=== PATIENT | female | born 1950 | race Caucasian/White ===

== ENCOUNTER 2017-03-13 15:36 | Emergency (ER) | payer MEDICARE ==
[2017-03-13 15:49] VITALS: BP 153/77
--- NOTE | 2017-03-13 16:16 | UC ---
Throat Pain/Nasal Julio HPI - HPI Summary HPI Summary: SEVERAL WEEKS OF ALLERGIES, AND CONGESTION; LAST FOUR DAYS HAS HAD SINUS PRESSURE, FACIAL PAIN. NO FEVER. NO SORE THROAT. NO HEADACHE. - History of Current Complaint Chief Complaint: UCGeneralIllness Stated Complaint: SINUS Time Seen by Provider: 03/13/17 15:46 Hx Obtained From: Patient Hx Last Menstrual Period: n/a Onset/Duration: Gradual Onset, Lasting Weeks, Worse Since - 4 DAYS Cough: None Associated Signs & Symptoms: Positive: Hoarseness, Sinus Discomfort, Nasal Discharge - Epiglottits Risk Factors Epiglottis Risk Factors: Negative - Allergies/Home Medications Allergies/Adverse Reactions: Allergies Allergy/AdvReac Type Severity Reaction Status Date / Time Ofloxacin [From Floxin] Allergy Mild See Comment Verified 03/13/17 15:51 Codeine Allergy Nausea And Verified 03/13/17 15:51 Vomiting Midazolam [From Versed] AdvReac Unknown sister had Verified 03/13/17 15:51 respiratory problem Propofol AdvReac Unknown sister had Verified 03/13/17 15:51 respiratory pain meds Allergy Intermediate Nausea Uncoded 03/13/17 15:51 Home Medications: Home Medications Cetirizine* [ZyrTEC 10 MG TAB*] 10 mg PO DAILY 03/13/17 [History Confirmed 03/13] [id number]-[id number] [[place] Plus Day/Nig] 1 tab PO ONCE [History Confirmed 03/13/17] PMH/Surg Hx/FS Hx/Imm Hx Previously Healthy: Yes - Surgical History Surgical History: Yes Surgery Procedure, Year, and Place: 2007 - right lower lung removed - had a mass ; benign. hysterectomy - Family History Known Family History: Positive: Respiratory Disease - ASTHMA, Other - cancer, father - Social History Occupation: Employed Full-time Lives: With Family Alcohol Use: Rare Substance Use Type: None Smoking Status (MU): Never Smoked Tobacco Review of Systems Constitutional: Negative Skin: Negative Eyes: Negative ENT: Nasal Discharge, Sinus Congestion, Sinus Pain/Tenderness Respiratory: Negative Cardiovascular: Negative Gastrointestinal: Negative Genitourinary: Negative Motor: Negative Neurovascular: Negative Musculoskeletal: Negative Neurological: Negative Psychological: Negative All Other Systems Reviewed And Are Negative: Yes Physical Exam Triage Information Reviewed: Yes Appearance: No Pain Distress, Well-Nourished, Ill-Appearing - MILDLY Vital Signs: Initial Vital Signs Temp 98.2 F 03/13/17 15:45 Pulse 74 03/13/17 15:45 Resp 17 03/13/17 15:45 BP 153/77 03/13/17 15:45 Pulse Ox 99 03/13/17 15:45 Vital Signs Reviewed: Yes Eye Exam: Normal ENT: Positive: Nasal congestion, TM bulging, TM dull Dental Exam: Normal Neck exam: Normal Neck: Positive: Supple, Nontender, No Lymphadenopathy Respiratory Exam: Normal Respiratory: Positive: Chest non-tender, Lungs clear, Normal breath sounds, No respiratory distress, No accessory muscle use Cardiovascular Exam: Normal Cardiovascular: Positive: RRR, No Murmur, Pulses Normal, Brisk Capillary Refill Abdominal Exam: Normal Abdomen Description: Positive: Nontender, No Organomegaly Musculoskeletal Exam: Normal Neurological Exam: Normal Psychological Exam: Normal Psychological: Positive: Normal Response To Family Skin Exam: Normal Throat Pain/Nasal Course/Dx - Differential Dx/Diagnosis Differential Diagnosis/HQI/PQRI: Pharyngitis, Sinusitis, Tonsillitis, URI Provider Diagnoses: SINUSITIS Discharge - Discharge Plan Condition: Stable Disposition: HOME Prescriptions: Amoxicillin/Clavulanate TAB* [Augmentin TAB 875*] 875 mg PO BID #20 tab Fluticasone NASAL SPRAY 50MCG* [Flonase NASAL SPRAY 50MCG*] 2 spray BOTH NARES DAILY #1 btl Patient Education Materials: Sinusitis (ED) Referrals: Thelma Bruce MD [Primary Care Provider] -
== END 2017-03-13 16:32 | disposition home or self-care (01) ==
LOC: UCCORT 15:36
DX: J32.9 Chronic sinusitis, unspecified (principal); Z90.710 Acquired absence of both cervix and uterus; Z88.1 Allergy status to other antibiotic agents; Z88.5 Allergy status to narcotic agent
CPT/HCPCS: 99212; G0463

== ENCOUNTER 2017-09-14 12:31 | Emergency (ER) | payer MEDICARE ==
[2017-09-14 13:04] VITALS: BP 148/87
[2017-09-14] MEDS ORDERED: Albuterol/Ipratropium NEB.SOL* Albuterol 2.5 MG/Ipratropium 0.5 MG 3 ML INH ONE (13:11)
--- NOTE | 2017-09-14 13:16 | UC ---
Respiratory Complaint HPI - HPI Summary HPI Summary: Patient has hx of lobectomy and has had symptoms of bronchitis for the past 2-3 months, has been treated once with ABX but no help. now has sinus pressures and increase cough. afebrile. - History of Current Complaint Chief Complaint: UCRespiratory Stated Complaint: SOB/COUGH/CONGESTION Time Seen by Provider: 09/14/17 13:05 Hx Obtained From: Patient Hx Last Menstrual Period: n/a ?: No Onset/Duration: Sudden Onset, Lasting Weeks - 10 Timing: Constant Severity Initially: Moderate Severity Currently: Moderate Pain Intensity: 0 Character: Cough: Productive Aggravating Factors: Exertion, Deep Breaths, Recumbent Position Alleviating Factors: Nothing Associated Signs And Symptoms: Positive: Dyspnea, Wheezing, URI, Nasal Congestion, Sinus Discomfort - Allergies/Home Medications Allergies/Adverse Reactions: Allergies Allergy/AdvReac Type Severity Reaction Status Date / Time Ofloxacin [From Floxin] Allergy Mild See Comment Verified 09/14/17 12:57 Codeine Allergy Nausea And Verified 09/14/17 12:57 Vomiting Midazolam [From Versed] AdvReac Unknown sister had Verified 09/14/17 12:57 respiratory problem Propofol AdvReac Unknown sister had Verified 09/14/17 12:57 respiratory pain meds Allergy Intermediate Nausea Uncoded 09/14/17 12:57 PMH/Surg Hx/FS Hx/Imm Hx Previously Healthy: Yes - Surgical History Surgical History: Yes Surgery Procedure, Year, and Place: 2007 - right lower lung removed - had a mass ; benign. hysterectomy - Family History Known Family History: Positive: Respiratory Disease - ASTHMA, Other - cancer, father - Social History Alcohol Use: Occasionally Substance Use Type: None Smoking Status (MU): Never Smoked Tobacco Review of Systems Constitutional: Fever, Fatigue Skin: Negative Eyes: Negative ENT: Sore Throat, Ear Ache, Nasal Discharge, Sinus Pain/Tenderness Respiratory: Shortness Of Breath, Cough Cardiovascular: Negative Gastrointestinal: Negative Genitourinary: Negative Motor: Negative Neurovascular: Negative Musculoskeletal: Negative Neurological: Headache Psychological: Negative Is Patient Immunocompromised?: No All Other Systems Reviewed And Are Negative: Yes Physical Exam Triage Information Reviewed: Yes Appearance: Well-Nourished, Ill-Appearing, Pain Distress Vital Signs: Initial Vital Signs Temp 98.2 F 09/14/17 12:59 Pulse 86 09/14/17 12:59 Resp 20 09/14/17 12:59 BP 148/87 09/14/17 12:59 Pulse Ox 98 09/14/17 12:59 Vital Signs Reviewed: Yes Eye Exam: Normal ENT: Positive: Nasal congestion, Nasal drainage, TM bulging, TM dull, TM red Dental Exam: Normal Neck exam: Normal Neck: Positive: Supple, Nontender, No Lymphadenopathy Respiratory: Positive: Chest non-tender, No respiratory distress, No accessory muscle use Cardiovascular Exam: Normal Cardiovascular: Positive: RRR, No Murmur, Pulses Normal Abdominal Exam: Normal Abdomen Description: Positive: Nontender, No Organomegaly, Soft Bowel Sounds: Positive: Present Musculoskeletal Exam: Normal Musculoskeletal: Positive: Strength Intact, ROM Intact, No Edema Neurological Exam: Normal Neurological: Positive: Alert, Muscle Tone Normal Psychological Exam: Normal Skin Exam: Normal UC Diagnostic Evaluation - Laboratory O2 Sat by Pulse Oximetry: 98 Re-Evaluation - Re-Evaluation First Eval Re-Evaluation Time: 12:45 Change: Improved - after neb Respiratory Course/Dx - Course Course Of Treatment: hx obtained, exam performed, meds reviewed, neb treatment given with improvment - Differential Dx/Diagnosis Differential Diagnosis/HQI/PQRI: Asthma, Bronchitis, CHF, Laryngitis, Lower Resp Infection, Sinusitis Provider Diagnoses: bronchitis. SOB Discharge - Discharge Plan Condition: Stable Disposition: HOME Patient Education Materials: Bronchospasm (ED) Referrals: Thelma Bruce MD [Primary Care Provider] - Additional Instructions: 1. take the medications as prescribed. 2. Increase fluid intake and get rest 3. COol mist humidification 4. Follow up with any increase in symptoms
== END 2017-09-14 14:07 | disposition home or self-care (01) ==
LOC: UCCORT 12:31
DX: J40 Bronchitis, not specified as acute or chronic (principal); R06.02 Shortness of breath; Z90.2 Acquired absence of lung [part of]; Z90.710 Acquired absence of both cervix and uterus; Z88.1 Allergy status to other antibiotic agents; Z88.5 Allergy status to narcotic agent; Z88.8 Allergy status to other drugs, medicaments and biological substances
CPT/HCPCS: 99212; A9270-GY; G0463

== ENCOUNTER 2018-10-02 10:03 | Emergency (ER) | payer MEDICARE ==
--- OUTSIDE RECORDS SUMMARY | 2018-10-02 10:22 | XMS REPORT | Continuity of Care Document ---
:1950 External Reference #:[id number] Author Name Cynthia Weire Care Team Providers Name Role Phone Thelma Bruce MD Primary Care Physician Unavailable Payers Date Identification Numbers Payment Provider Subscriber Policy Number: [id number] Medicare Blue Ppo Bhumika Ross Group Number: [id number] PayID: [id number] [address] [place] [address] Advance Directives Description No Information Available Problems Date Description Provider Status Onset: 05/20/2011 Hyperlipidemia Thelma Bruce M.D. Active Family History Date Family Member(s) Observation Comments Father Lung Cancer Mother due to Diabetes () Mother due to Emphysema () Social History Type Date Description Comments Sex Unknown Tobacco Use Start: Unknown Never Smoked Cigarettes ETOH Use Occasionally consumes alcohol Tobacco Use Start: Unknown Patient has never smoked Smoking Status Reviewed: 07/21/17 Patient has never smoked Allergies, Adverse Reactions, Alerts Date Description Reaction Status Severity Comments 09/22/2018 Propofol Active 09/22/2018 Midazolam Active 09/22/2018 Codiene Active Medications Medication Date Status Form Strength Qnty SIG Indications Ordering Provider Melatonin 06/23 Active Capsules 5mg 90caps 1 tab by G47.00 mouth Gaty, every M.D. night at bedtime Work Note 07/21 Active May return J01.90 to work Teo M.DFrances 07/24 Ventolin HFA 08/01 Active Aerosol 108(90Bas 1units 2 puff J18.9 e) four times Teo mcg/Act a day as M.D. needed Flonase Active Suspension 50mcg/Act one Unknown Allergy Relief /0000 inhalation each nostril every day Red Yeast Rice 06/23 Hx Capsules 600mg 120caps every day E78.5 Tony Bruce M.D. 09/22 Sulfamethoxazo 03/12 Hx Tablets 800-160mg 14tabs 1 by mouth N39.0 Thelma le/Trimethopri /2017 twice a jensen Bruce DS - day M.DFrances 06/23 Amoxicillin/Cl 08/01 Hx Tablets 500-125mg 20tabs 1 by mouth J18.8 Thelma avulanate twice a Teo Potassium - day M.DFrances 03/12 No Active 05/31 Hx Unknown Medications /2013 - 08/01 Vitamin D 11/29 Hx Capsules 1000Unit 100caps 1 po qd 268.9 Tony Bruce M.D. 05/31 No Active 05/20 Hx Unknown Medications /2010 - 11/29 Ranitidine HCL 08/02 Hx Tablets 150mg 30tabs 1 po qd 535.00 may take Tony Bruce bid for M.D. 10/30 next days Compazine 08/02 Hx 10mg 30units 1 po q 6 535.00 hours prn Tony Bruce nausea M.DFrances 10/30 Compazine 08/02 Hx 30units 1 pr q 6 Thelma Suppositories /2008 hours Tony Bruce M.D. 10/30 Work Note 08/02 Hx may return 535.00 to work Tony Bruce Sat Dec Gena 10/30 18, 2008 Enablex 07/06 Hx Tablets ER 7.5mg samples 625.6 24HR Tony Bruce M.D. 10/30 Work Note 12/14 Hx may return to work no Tony Bruceio Gena 05/08 ns 12/15/08 Fish Oil 12/12 Hx Capsules 1000mg 1 po q day 272.4 Tony Bruce M.D. 05/20 Amoxicillin 12/12 Hx Capsules 500mg 20caps 1 tablets 473.90 po bid Tony Bruce M.D. 05/08 Citalopram 04/26 Hx Tablets 10mg 30tabs 1 po qd 300.4 Thelma Hydrobromide Tony Bruce M.D. 05/08 Lunesta 04/26 Hx Tablets 3mg 30tabs 1 po qhs 300.4 Tony Bruce M.D. 05/08 Flexeril 03/28 Hx Tablets 5mg 30tabs 1 po tid 724.3 prn Tony Bruce M.D. 04/26 Work Note 03/28 Hx patient 724.3 will not Teo, - be allowed M.DFrances 12/12 to return to work until 03/31/08 D/t lifting responsibi lities Bactrim TMP/ 10/30 Hx Tablets 80mg;400 15tabs 1 PO bid 466.00 Thelma SMX mg Tony Bruce M.D. 04/26 Zetia 05/19 Hx Tablets 10mg 90tabs 1 PO qd Thelma Tony Bruce M.D. 08/01 Fish Oil 01/20 Hx Tablets 1000mg 2 po qd Thelma Tony Bruce M.D. 04/26 Potassium 01/20 Hx 1 PO qd Thelma Citrate Tony Bruce M.D. 05/04 Glusomine 01/20 Hx 1000mg 2 PO qd Thelma Sulsate Tony Bruce M.D. 04/26 Magnesium 01/20 Hx Thelma Tony Bruce M.D. 05/04 Premarin 01/17 Hx Tablets 0.45mg 90tabs 1 po qd Thelma Tony Bruce M.D. 05/19 Naproxen Hx Tablets 220mg 1 by mouth Unknown Sodium /0000 twice a - day as 03/12 needed /2018 Benzonatate Hx Capsules 100mg 60caps 1 by mouth Thelma /0000 every 8 Teo, - hours as M.DFrances 03/12 needed for /2017 cough Immunizations CPT Code Status Date Vaccine Lot # [id number] Given 08/31/2013 [place] [id number] Given 06/23/2006 Influenza Vaccine [id number] Vital Signs Date Vital Result Comment 09/22/2018 10:40am BP Systolic 130 mmHg BP Diastolic 68 mmHg Height 60 inches 5'0" Weight 167.00 lb BMI (Body Mass Index) 32.6 kg/m2 06/23/2018 1:28pm BP Systolic 134 mmHg BP Diastolic 68 mmHg Heart Rate 81 /min Height 60 inches 5'0" Weight 168.00 lb BMI (Body Mass Index) 32.8 kg/m2 O2 % BldC Oximetry 97 % 03/12/2018 11:53am BP Systolic 120 mmHg BP Diastolic 74 mmHg Heart Rate 94 /min Body Temperature 97.8 F Respiratory Rate 16 /min Height 60 inches 5'0" Weight 166.00 lb BMI (Body Mass Index) 32.4 kg/m2 O2 % BldC Oximetry 97 % 07/21/2017 3:15pm BP Systolic 136 mmHg BP Diastolic 80 mmHg Heart Rate 100 /min Body Temperature 98.3 F O2 % BldC Oximetry 98 % 06/18/2017 10:17am BP Systolic 138 mmHg BP Diastolic 78 mmHg Respiratory Rate 20 /min Height 60 inches 5'0" Weight 171.00 lb BMI (Body Mass Index) 33.4 kg/m2 03/28/2015 10:26am BP Systolic 110 mmHg BP Diastolic 62 mmHg Body Temperature 97.6 F 12/15/2014 9:50am BP Systolic 110 mmHg BP Diastolic 60 mmHg Height 60 inches 5'0" Weight 169.00 lb BMI (Body Mass Index) 33.0 kg/m2 08/01/2014 1:25pm BP Systolic 104 mmHg BP Diastolic 60 mmHg Body Temperature 97.8 F 05/31/2014 10:05am BP Systolic 120 mmHg BP Diastolic 70 mmHg Height 60 inches 5'0" Weight 164.00 lb BMI (Body Mass Index) 32.0 kg/m2 11/29/2013 11:20am BP Systolic 116 mmHg BP Diastolic 60 mmHg Height 60 inches 5'0" Weight 170.00 lb BMI (Body Mass Index) 33.2 kg/m2 08/31/2013 11:19am BP Systolic 112 mmHg BP Diastolic 70 mmHg Height 60 inches 5'0" Weight 170.00 lb BMI (Body Mass Index) 33.2 kg/m2 05/20/2011 10:35am BP Systolic 120 mmHg BP Diastolic 78 mmHg Height 62 inches 5'2" Weight 167.00 lb BMI (Body Mass Index) 30.5 kg/m2 10/30/2009 11:48am BP Systolic 120 mmHg BP Diastolic 60 mmHg Weight 160.00 lb 08/02/2009 1:37pm BP Systolic 110 mmHg BP Diastolic 66 mmHg Body Temperature 99.0 F Weight 160.00 lb 07/06/2009 11:49am BP Systolic 132 mmHg BP Diastolic 78 mmHg 05/08/2009 10:57am BP Systolic 122 mmHg BP Diastolic 70 mmHg Weight 164.00 lb 12/12/2008 11:44am BP Systolic 120 mmHg BP Diastolic 82 mmHg Height 59 inches 4'11" Weight 167.00 lb BMI (Body Mass Index) 33.7 kg/m2 07/21/2008 10:21am BP Systolic 120 mmHg BP Diastolic 70 mmHg Height 59 inches 4'11" Weight 164.00 lb BMI (Body Mass Index) 33.1 kg/m2 04/26/2008 10:00am BP Systolic 132 mmHg BP Diastolic 70 mmHg Height 59 inches 4'11" Weight 169.00 lb BMI (Body Mass Index) 34.1 kg/m2 03/28/2008 9:51am BP Systolic 122 mmHg BP Diastolic 80 mmHg Height 59 inches 4'11" 05/04/2007 11:10am BP Systolic 120 mmHg BP Diastolic 62 mmHg Height 59 inches 4'11" Weight 177.00 lb BMI (Body Mass Index) 35.7 kg/m2 10/30/2006 10:29am BP Systolic 128 mmHg BP Diastolic 74 mmHg Heart Rate 100 /min Body Temperature 96.8 F Height 59 inches 4'11" O2 % BldC Oximetry 98 % 06/23/2006 2:27pm BP Systolic 122 mmHg BP Diastolic 74 mmHg Height 59 inches 4'11" Weight 166.00 lb BMI (Body Mass Index) 33.5 kg/m2 05/19/2006 11:01am BP Systolic 122 mmHg BP Diastolic 74 mmHg Height 59 inches 4'11" Weight 160.00 lb BMI (Body Mass Index) 32.3 kg/m2 01/20/2006 2:35pm BP Systolic 126 mmHg BP Diastolic 74 mmHg Height 59 inches 4'11" Weight 156.00 lb BMI (Body Mass Index) 31.5 kg/m2 Results Test Date Facility Test Result H/L Range Note Lipid Panel 09/14/2018 [facility] Cholesterol 281 mg/dL High <199 [address] [place] [address] [phone] HDL Cholesterol 40 mg/dL Low >50 Cholesterol/HDL Ratio 7.0 CALC High <5.0 LDL Chol,Calculated 202 mg/dL High 0-100 2 Triglycerides 209 mg/dL High <150 Non-HDL Cholesterol 241 mg/dL High <130 3 CBC W/ Diff & PLT 06/12/2018 [facility] WBC 6.1 thous/L 3.8-10.[address] [place] [address] [phone] RBC 4.93 mill/L 3.80-5.10 Hemoglobin 14.0 g/dL 11.7-15.5 Hematocrit 41.5 % 35.0-45.0 MCV 84.3 FL 80.0-100.0 MCH 28.4 pg 27.0-33.0 MCHC 33.7 g/dL 32.0-36.0 RDW 14.1 % 11.0-15.0 Platelet Count 293 thous/L 140-400 MPV 8.9 FL 7.5-12.5 Neutrophils,Absolute 3350 cells/L 1954-6098 Bands,Absolute PENDING Metamyelocytes,Absolute PENDING Myelocytes,Absolute PENDING Promyelocytes,Absolute PENDING Lymphocytes,Absolute 1960 cells/L 850-3900 Monocytes,Absolute 360 cells/L 200-950 Eosinophils,Absolute 400 cells/L 15-500 Basophils,Absolute 40 cells/L 0-200 Blast Cells,Absolute PENDING Nucleated RBC,Absolute PENDING Total Neutrophils,% 55 % 40-75 Bands,% PENDING Metamyelocytes,% PENDING Myelocytes,% PENDING Promyelocytes,% PENDING Total Lymphocytes,% 32 % 12-47 Reactive Lymphocytes PENDING Monocytes,% 6 % 4-12 Eosinophils,% 7 % High 0-4 Basophils,% 1 % 0-1 4 Blasts,% PENDING Nucleated RBC PENDING Comment PENDING Basic Metab W/O CA 06/12/2018 [facility] Sodium 138 mmol/L 135-[address] [place] [address] [phone] Potassium 4.3 mmol/L 3.5-5.3 Chloride 104 mmol/L 98-110 Carbon Dioxide 26 mmol/L 20-32 5 Glucose 96 mg/dL 65-99 6 Urea Nitrogen (BUN) 21 mg/dL 7-25 Creatinine 0.70 mg/dL 0.50-0.99 7 BUN/Creatinine Ratio 30.0 High 6-22 Lipid Panel 06/12/2018 [facility] Cholesterol 294 mg/dL High <[address] [place] [address] [phone] HDL Cholesterol 43 mg/dL Low >50 Cholesterol/HDL Ratio 6.8 CALC High <5.0 LDL Chol,Calculated 198 mg/dL High 0-100 8 Triglycerides 313 mg/dL High <150 Non-HDL Cholesterol 251 mg/dL High <130 9 Laboratory test 03/29/2016 [facility] Urine Culture SEE RESULT 10, [address] [place] [address] [phone] CBC W/ Diff & 12/08/2014 [facility] WBC 6.2 3.8-1 [address] thous/L 0.8 [place] [address] [phone] RBC 4.90 mill/L 3.80-5.10 Hemoglobin 13.9 g/dL 11.7-15.5 Hematocrit 41.9 % 35.0-45.0 MCV 85.6 FL 80.0-100.0 MCH 28.5 pg 27.0-33.0 MCHC 33.2 g/dL 32.0-36.0 RDW 14.1 % 11.0-15.0 Platelet Count 276 thous/L 140-400 Platelet Sufficiency PENDING Neutrophils,Absolute 3680 cells/L 8237-7017 Bands,Absolute PENDING Metamyelocytes,Absolute PENDING Myelocytes,Absolute PENDING Promyelocytes,Absolute PENDING Lymphocytes,Absolute 1810 cells/L 850-3900 Monocytes,Absolute 440 cells/L 200-950 Eosinophils,Absolute 240 cells/L 15-500 Basophils,Absolute 40 cells/L 0-200 Blast Cells,Absolute PENDING Nucleated RBC,Absolute PENDING Total Neutrophils,% 59 % Not Established Bands,% PENDING Metamyelocytes,% PENDING Myelocytes,% PENDING Promyelocytes,% PENDING Total Lymphocytes,% 29 % Not Established Monocytes,% 7 % Not Established Eosinophils,% 4 % Not Established Basophils,% 1 % Not Established Blasts,% PENDING Nucleated RBC PENDING RBC Morphology PENDING Anisocytosis PENDING Poikilocytosis PENDING Microcytosis PENDING Macrocytosis PENDING Polychromasia PENDING Hypochromasia PENDING Target Cells PENDING Basophilic Stippling PENDING Comment PENDING BMP W/O Egfr 12/08/2014 [facility] Sodium 139 mmol/L 135-[address] [place] [address] [phone] Potassium 4.2 mmol/L 3.5-5.3 Chloride 103 mmol/L 98-110 Carbon Dioxide 27 mmol/L 19-30 Calcium 9.0 mg/dL 8.6-10.4 Glucose 86 mg/dL 65-99 13 Urea Nitrogen 22 mg/dL 7-25 Creatinine 0.75 mg/dL 0.50-0.99 14 BUN/Creatinine Ratio 29.9 High 6-22 Lipid Panel 12/08/2014 [facility] Cholesterol 281 mg/dL High 125-[address] [place], [place] [address] [phone] HDL Cholesterol 42 mg/dL Low > Or=46 Cholesterol/HDL Ratio 6.7 High < Or=5.0 LDL Chol,Calculated 194 mg/dL High <130 15 Triglycerides 227 mg/dL High <150 Non-HDL Cholesterol 239 mg/dL High 16 TSH & T4,Free 12/08/2014 [facility] TSH 1.96 mIU/L 0.40-4.[address] [place], [place] [address] [phone] T4,Free 1.3 ng/dL 0.8-1.8 [facility] 12/08/2014 [facility] Vitamin 21 ng/mL Low 30-100 25-Hydroxy D [address] D,25-Oh,Total (D2,D3) LC/MS [place], [place] [id number] [phone] Vitamin D,25-Oh,D3 21 ng/mL Vitamin D,25-Oh,D2 <4 ng/mL 18 Laboratory test 05/24/2014 [facility] Direct LDL 203 mg/dL High <130 [address] [place] [address] [phone] CBC W/ Diff & 11/22/2013 [facility] WBC 7.2 3.8-10.[address] thous/L [place], [place] [id number] [phone] RBC 4.89 mill/L 3.80-5.10 Hemoglobin 14.2 g/dL 11.7-15.5 Hematocrit 41.0 % 35.0-45.0 MCV 83.9 FL 80.0-100.0 MCH 29.1 pg 27.0-33.0 MCHC 34.6 g/dL 32.0-36.0 RDW 13.5 % 11.0-15.0 Platelet Count 271 thous/L 140-400 Neutrophils,Absolute 4410 cells/L 4767-5134 Lymphocytes,Absolute 2140 cells/L 850-3900 Monocytes,Absolute 400 cells/L 200-950 Eosinophils,Absolute 180 cells/L 15-500 Basophils,Absolute 60 cells/L 0-200 Total Neutrophils,% 61 % Not Established Total Lymphocytes,% 30 % Not Established Monocytes,% 6 % Not Established Eosinophils,% 3 % Not Established Basophils,% 1 % Not Established BMP W/O Egfr 11/22/2013 [facility] Sodium 141 mmol/L 135-[address] [place], [place] [address] [phone] Potassium 4.3 mmol/L 3.5-5.3 Chloride 104 mmol/L 98-110 Carbon Dioxide 26 mmol/L 19-30 Calcium 9.5 mg/dL 8.6-10.4 Glucose 87 mg/dL 65-99 20 Urea Nitrogen 21 mg/dL 7-25 Creatinine 0.72 mg/dL 0.50-0.99 21 BUN/Creatinine Ratio 28.5 High 6-22 Lipid Panel 11/22/2013 [facility] Cholesterol 313 mg/dL High 125-[address] [place] [address] [phone] HDL Cholesterol 45 mg/dL Low > Or=46 Cholesterol/HDL Ratio 7.0 High < Or=5.0 LDL Chol,Calculated 218 mg/dL High <130 22 Triglycerides 249 mg/dL High <150 Non-HDL Cholesterol 268 mg/dL High 23 TSH & T4,Free 11/22/2013 [facility] TSH 2.98 mIU/L 0.40-4.[address] [place] [address] [phone] T4,Free 1.2 ng/dL 0.8-1.8 [facility] 11/22/2013 [facility] Vitamin 18 ng/mL Low 30-100 25-Hydroxy D [address] D,25-Oh,Total (D2,D3) LC/[place] [address] [phone] Vitamin D,25-Oh,D3 18 ng/mL Vitamin D,25-Oh,D2 <4 ng/mL 25 Urine Culture & 06/29/2010 [employer] Urine Culture SN1 [address] [place] [address] [phone] TSH & T4,Free 10/23/2009 [facility] TSH,3RD 2.05 0.40-[address] Generation mIU/L .50 [place] [address] [phone] T4,Free 1.1 ng/dL 0.8-1.8 CBC W/ Diff & PLT 10/23/2009 [facility] WBC 5.2 thous/L 3.8-10.[address] [place] [address] [phone] RBC 4.51 mill/L 3.80-5.10 Hemoglobin 13.1 g/dL 11.7-15.5 Hematocrit 38.9 % 35.0-45.0 MCV 86.2 FL 80.0-100.0 MCH 28.9 pg 27.0-33.0 MCHC 33.6 g/dL 32.0-36.0 RDW 13.5 % 11.0-15.0 Platelet Count 254 thous/L 140-400 Platelet Sufficiency NORMAL Normal Neutrophils,Absolute 3010 cells/L 9361-8511 Bands,Absolute DNR cells/L 0-750 Metamyelocytes,Absolute DNR cells/L 0 Myelocytes,Absolute DNR cells/L 0 Promyelocytes,Absolute DNR cells/L 0 Lymphocytes,Absolute 1750 cells/L 850-3900 Monocytes,Absolute 300 cells/L 200-950 Eosinophils,Absolute 120 cells/L 15-500 Basophils,Absolute 30 cells/L 0-200 Blast Cells,Absolute DNR cells/L 0 Nucleated RBC,Absolute DNR cells/L 0 Total Neutrophils,% 57 % 38-80 Bands,% DNR % 0-10 Metamyelocytes,% DNR % Myelocytes,% DNR % Promyelocytes,% DNR % Total Lymphocytes,% 34 % 15-49 Monocytes,% 6 % 0-13 Eosinophils,% 2 % 0-8 Basophils,% 1 % 0-2 Blasts,% DNR % Nucleated RBC DNR /100WBC 0 RBC Morphology NORMAL Anisocytosis DNR Poikilocytosis DNR Microcytosis DNR Macrocytosis DNR Polychromasia DNR Hypochromasia DNR Target Cells DNR Basophilic Stippling DNR Comment DNR Lipid Panel 10/23/2009 [facility] Cholesterol 289 mg/dL High 125-[address] [place] [address] [phone] HDL Cholesterol 44 mg/dL Low > Or=46 Triglycerides 217 mg/dL High <150 Cholesterol/HDL Ratio 6.6 High < Or=5.0 LDL Chol,Calculated 202 mg/dL High <130 28 Basic Metabolic Panel 10/23/2009 [facility] Sodium 140 mmol/L 135-[address] [place] [address] [phone] Potassium 4.3 mmol/L 3.5-5.3 Chloride 106 mmol/L 98-110 Carbon Dioxide 26 mmol/L 21-33 Calcium 9.2 mg/dL 8.6-10.2 Glucose 99 mg/dL 65-99 29 Urea Nitrogen 18 mg/dL 7-25 Creatinine 0.76 mg/dL 0.60-1.18 BUN/Creatinine Ratio 23.9 High 6-22 Egfr Non-Afr. Bangladeshi >60 ML/MIN/1.73M2 > Or=60 Egfr >60 ML/MIN/1.73M2 > Or=60 Lipid Panel 05/02/2009 [facility] Cholesterol 267 mg/dL High 125-[address] [place] [address] [phone] HDL Cholesterol 47 mg/dL > Or=46 Triglycerides 205 mg/dL High <150 Cholesterol/HDL Ratio 5.7 High < Or=5.0 LDL Chol,Calculated 179 mg/dL High <130 30 TSH & T4,Free 11/22/2008 [facility] TSH,3RD 2.60 mU/L 0.40-4.[address] [place] [address] [phone] T4,Free 1.3 ng/dL 0.8-1.8 CBC W/ Diff & PLT 11/22/2008 [facility] WBC 5.2 thous/L 3.8-10.8 [address] [place] [address] [phone] RBC 4.86 mill/L 3.80-5.10 Hemoglobin 14.2 g/dL 11.7-15.5 Hematocrit 40.9 % 35.0-45.0 MCV 84.1 FL 80.0-100.0 MCH 29.2 pg 27.0-33.0 MCHC 34.7 g/dL 32.0-36.0 RDW 13.9 % 11.0-15.0 Platelet Count 272 thous/L 140-400 Platelet Sufficiency NORMAL Normal Neutrophils,Absolute 2860 cells/L 7175-3865 Bands,Absolute DNR cells/L 0-750 Metamyelocytes,Absolute DNR cells/L 0 Myelocytes,Absolute DNR cells/L 0 Promyelocytes,Absolute DNR cells/L 0 Lymphocytes,Absolute 1730 cells/L 850-3900 Monocytes,Absolute 420 cells/L 200-950 Eosinophils,Absolute 140 cells/L 15-500 Basophils,Absolute 50 cells/L 0-200 Blast Cells,Absolute DNR cells/L 0 Nucleated RBC,Absolute DNR cells/L 0 Total Neutrophils,% 55 % 38-80 Bands,% DNR % 0-10 Metamyelocytes,% DNR % Myelocytes,% DNR % Promyelocytes,% DNR % Total Lymphocytes,% 33 % 15-49 Monocytes,% 8 % 0-13 Eosinophils,% 3 % 0-8 Basophils,% 1 % 0-2 Blasts,% DNR % Nucleated RBC DNR /100WBC 0 RBC Morphology NORMAL Anisocytosis DNR Poikilocytosis DNR Microcytosis DNR Macrocytosis DNR Polychromasia DNR Hypochromasia DNR Target Cells DNR Basophilic Stippling DNR Comment DNR Lipid Panel 11/22/2008 [facility] Cholesterol 314 mg/dL High 125-200 [address] [place] [address] [phone] HDL Cholesterol 43 mg/dL Low > Or=46 Triglycerides 355 mg/dL High <150 Cholesterol/HDL Ratio 7.3 High < Or=5.0 LDL Chol,Calculated 200 mg/dL High <130 32 Basic Metabolic Panel 11/22/2008 [facility] Sodium 139 mmol/L 135-[address] [place] [address] [phone] Potassium 4.4 mmol/L 3.5-5.3 Chloride 103 mmol/L 98-110 Carbon Dioxide 29 mmol/L 21-33 Calcium 9.0 mg/dL 8.6-10.2 Glucose 90 mg/dL 65-99 33 Urea Nitrogen 16 mg/dL 7-25 Creatinine 0.76 mg/dL 0.60-1.18 BUN/Creatinine Ratio 20.9 6-22 Egfr Non-Afr. Bangladeshi >60 ML/MIN/1.73M2 > Or=60 Egfr >60 ML/MIN/1.73M2 > Or=60 Laboratory test finding 03/25/2008 [facility] BUN 19 mg/dL 5-[address] [place] [address] [phone] Creatinine 0.8 mg/dL 0.5-1.4 Lipid Panel 06/16/2006 [facility] Cholesterol 295 mg/dL High <200 [address] [place] [address] [phone] HDL Cholesterol 54 mg/dL >40 36 Cholesterol/HDL Ratio 5.5 High <4.4 LDL Chol,Calculated 203 mg/dL High <130 37 Triglycerides 190 mg/dL High <150 Lipid Panel 05/12/2006 [facility] Cholesterol 292 mg/dL High <[address] [place] [address] [phone] HDL Cholesterol 46 mg/dL >40 38 Triglycerides 232 mg/dL High <150 Cholesterol/HDL Ratio 6.3 High <4.4 LDL Chol,Calculated 200 mg/dL High <130 39 CBC W/ Diff & PLT 05/12/2006 [facility] WBC 5.4 thous/L 3.8-10.[address] [place] [address] [phone] RBC 4.75 mill/L 3.80-5.10 Hemoglobin 14.0 g/dL 11.7-15.5 Hematocrit 40.3 % 35.0-45.0 MCV 84.8 FL 80.0-100.0 MCH 29.4 pg 27.0-33.0 MCHC 34.7 g/dL 32.0-36.0 RDW 13.6 % 11.0-15.0 Platelet Count 279 thous/L 140-400 Platelet Sufficiency NORMAL Normal Neutrophils,Absolute 2600 cells/L 6880-5313 Bands,Absolute DNR cells/L 0-750 Metamyelocytes,Absolute DNR cells/L 0 Myelocytes,Absolute DNR cells/L 0 Promyelocytes,Absolute DNR cells/L 0 Lymphocytes,Absolute 2250 cells/L 850-3900 Monocytes,Absolute 350 cells/L 200-950 Eosinophils,Absolute 120 cells/L 15-500 Basophils,Absolute 40 cells/L 0-200 Blast Cells,Absolute DNR cells/L 0 Nucleated RBC,Absolute DNR cells/L 0 Total Neutrophils,% 48 % 38-80 Bands,% DNR % 0-10 Metamyelocytes,% DNR % Myelocytes,% DNR % Promyelocytes,% DNR % Total Lymphocytes,% 42 % 15-49 Monocytes,% 7 % 0-13 Eosinophils,% 2 % 0-8 Basophils,% 1 % 0-2 Blasts,% DNR % Nucleated RBC DNR /100WBC 0 RBC Morphology NORMAL Anisocytosis DNR Poikilocytosis DNR Microcytosis DNR Macrocytosis DNR Polychromasia DNR Hypochromasia DNR Target Cells DNR Basophilic Stippling DNR Comment DNR TSH & T4,Free 05/12/2006 [facility] TSH 1.63 mU/L 0.40-5.[address] [place] [address] [phone] T4,Free 1.3 ng/dL 0.8-1.8 Laboratory test 05/12/2006 [facility] Glucose 97 mg/dL 65-99 [address] [place] [address] [phone] Laboratory test 02/19/2006 [facility] Urine Culture SPECIMEN [address] [employer] CONTAIN <[place] [address] NOTE> [phone] 1 FASTING 2 LDL-C levels > or equal to 190 mg/dL may indicate familial hypercholesterolemia (FH). Clinical assessment and measurement of blood lipid levels should be considered for all first degree relatives of patients with an FH diagnosis. For questions about testing for familial hypercholesterolemia, please call [facility] at [email or web address]. gus Walter al.J National Lipid Association Recommendations for Patient-Centered Management of Dyslipidemia:Part 1 Journal of Clinical Lipidology 2015;9(2),129-169. 3 Non-HDL level > tm=152 is very high and may indicate genetic familial hypercholesterolemia (FH). Clinical assessment and measurement of blood lipid levels should be considered for all first-degree relatives of patients with an FH diagnosis. 4 Relative blood cell counts (%) should be compared with absolute cell counts (cells/mcL). Relative counts may not be clinically meaningful if the absolute count of one or more cell type is decreased. Reference ranges for relative cell counts derived from: A Manual of Laboratory and Diagnostics Tests, 9th Ed, Sylwia Chris & Desai, 2015. Pediatric Reference Intervals, 7th Ed, [employer], 2011. 5 Reference range for high altitude clients: 18-30 mmol/L 6 GLUCOSE REFERENCE RANGE BASED ON FASTING SPECIMEN. 7 The upper reference limit for Creatinine is approximately 13% higher for people identified as -Bangladeshi. 8 LDL-C levels > or equal to 190 mg/dL may indicate familial hypercholesterolemia (FH). Clinical assessment and measurement of blood lipid levels should be considered for all first degree relatives of patients with an FH diagnosis. gus Walter al.J National Lipid Association Recommendations for Patient-Centered Management of Dyslipidemia:Part 1 Journal of Clinical Lipidology 2015;9(2) ,129-169. 9 Non-HDL level > ls=534 is very high and may indicate genetic familial hypercholesterolemia (FH). Clinical assessment and measurement of blood lipid levels should be considered for all first-degree relatives of patients with an FH diagnosis. 10 [id number] 11 SEE RESULT BELOW Name: BHUMIKA ROSS : [address]: Estefania Balderrama MD Acct: [id number] Unit: [id number] AGE: 65 Location: [facility] Re03/29/16 SEX: F Status: DEP ER SPEC: [id number] DAVID: 03/29/16 [facility] [address]: Estefania Balderrama MD REQ: [id number] RECD: 03/29/16 STATUS: COMP OTHR DR: Thelma Bruce MD _ SOURCE: URINE SPDESC: ORDERED: Urine Culture COMMENTS: [id number] Procedure Result Reported Site Urine Culture Final 03/30/16- 1311 ML No Growth (<1,000 CFU/mL) * ML - MAIN LAB (PSC1) . END OF REPORT * ML=Testing performed at Main Lab DEPARTMENT OF PATHOLOGY, [address] [place] [address] Milton Hopper M.D. Director [facility] # [id number] 12 FASTING 13 GLUCOSE REFERENCE RANGE BASED ON FASTING SPECIMEN. 14 The upper reference limit for Creatinine is approximately 13% higher for people identified as -Bangladeshi. 15 LDL-C levels > zi=491 mg/dL may include familial hypercholesterolemia (FH). Clinical assessment and measurement of blood lipid levels should be considered for all first degree relatives of patients with an FH diagnosis. J of Clinincal Lipidology 5:S1-S8 2010. LDL-CHOLESTEROL RISK CATEGORY* GOAL VERY HIGH (E.G. DIABETES + CVD) <70 MG/DL HIGH (DIABETICS; CHD RISK EQUIVALENTS) <100 MG/DL MODERATELY HIGH (MULTIPLE(2+) RISK FACTORS) <130 MG/DL 0 TO 1 RISK FACTORS <160 MG/DL * NCEP REPORT. CIRCULATION 2004; 110: 227-239 16 Target for non-HDL cholesterol is 30 mg/dL higher than LDL cholesterol target. 17 REFERENCE RANGES BELOW ARE APPLICABLE TO FEMALES FIRST TRIMESTER - 0.26 - 2.66 mIU/L SECOND TRIMESTER - 0.55 - 2.73 mIU/L THIRD TRIMESTER - 0.43 - 2.91 mIU/L 18 25-OHD3 indicates both endogenous production and supplementation. 25-OHD2 is an indicator of exogenous sources such as diet or supplementation. Therapy is based on measurement of Total 25-OHD, with levels <20 ng/mL indicative of Vitamin D deficiency while levels between 20 ng/mL and 30 ng/mL suggest insufficiency. Optimal levels are > or=30 ng/mL. For more information on this test, go to http://education.[employer]/faq/25-OHVitaminD Effective December 19, the test order code 88387, used prior to December 19, for LC/MS/MS, will be transitioned to a carefully-selected immunoassay methodology. The new immunoassay has passed CDC standardization certifica- tion and provides high quality quantitative results that are tied back to standards from the [employer] [place] [employer]. For those patients for whom LC/MS/MS testing is appropriate, please utilize test code 84703. When LC/MS/MS is the chosen assay, utilize test code 30439 for patients >or=3 years of age, patients who are on D2 supplementation, and patients for whom a separate D2 and D3 measurement is required. For patients <3 years of age, test code 07787 should be used. Important Note Regarding Custom Panels With 25-Hydroxyvitamin D: If you currently order vitamin D testing as part of a custom panel, the LC/MS/MS vitamin D test will be maintained in your panel after December 19, 2014. If you would like to replace the test in your panel with the new immunoassay, or have any questions regarding the transition of the 80781 test code, please contact your local [employer] export sales manager. 19 LDL-CHOLESTEROL RISK CATEGORY* GOAL VERY HIGH (E.G. DIABETES + CVD) <70 MG/DL HIGH (DIABETICS; CHD RISK EQUIVALENTS) <100 MG/DL MODERATELY HIGH (MULTIPLE(2+) RISK FACTORS) <130 MG/DL 0 TO 1 RISK FACTORS <160 MG/DL * NCEP REPORT. CIRCULATION 2004; 110: [phone] 20 GLUCOSE REFERENCE RANGE BASED ON FASTING SPECIMEN. 21 The upper reference limit for Creatinine is approximately 13% higher for people identified as -[place]. 22 LDL-CHOLESTEROL RISK CATEGORY* GOAL VERY HIGH (E.G. DIABETES + CVD) <70 MG/DL HIGH (DIABETICS; CHD RISK EQUIVALENTS) <100 MG/DL MODERATELY HIGH (MULTIPLE(2+) RISK FACTORS) <130 MG/DL 0 TO 1 RISK FACTORS <160 MG/DL * NCEP REPORT. CIRCULATION 2004; 110: [phone] 23 Target for non-HDL cholesterol is 30 mg/dL higher than LDL cholesterol target. 24 REFERENCE RANGES BELOW ARE APPLICABLE TO FEMALES FIRST TRIMESTER - 0.26 - 2.66 mIU/L SECOND TRIMESTER - 0.55 - 2.73 mIU/L THIRD TRIMESTER - 0.43 - 2.91 mIU/L 25 25-OHD3 indicates both endogenous production and supplementation. 25-OHD2 is an indicator of exogenous sources such as diet or supplementation. Therapy is based on measurement of Total 25-OHD, with levels <20 ng/mL indicative of Vitamin D deficiency while levels between 20 ng/mL and 30 ng/mL suggest insufficiency. Optimal levels are > or=30ng/mL. For more information on this test, go to http://education.[employer].EVIIVO/faq/25-OHVitaminD 26 SCANT NORMAL URETHRAL OR PERINEAL DAVE 27 TSH REFERENCE RANGE: FIRST TRIMESTER - 0.20 - 4.70 mIU/L SECOND TRIMESTER - 0.30 - 4.10 mIU/L THIRD TRIMESTER - 0.40 - 2.70 mIU/L 28 LDL-CHOLESTEROL RISK CATEGORY* GOAL VERY HIGH (E.G. DIABETES + CVD) <70 MG/DL HIGH (DIABETICS; CHD RISK EQUIVALENTS) <100 MG/DL MODERATELY HIGH (MULTIPLE(2+) RISK FACTORS) <130 MG/DL 0 TO 1 RISK FACTORS <160 MG/DL * NCEP REPORT. CIRCULATION 2004; 110: [phone] 29 GLUCOSE REFERENCE RANGE BASED ON FASTING SPECIMEN. 30 LDL-CHOLESTEROL RISK CATEGORY* GOAL VERY HIGH (E.G. DIABETES + CVD) <70 MG/DL HIGH (DIABETICS; CHD RISK EQUIVALENTS) <100 MG/DL MODERATELY HIGH (MULTIPLE(2+) RISK FACTORS) <130 MG/DL 0 TO 1 RISK FACTORS <160 MG/DL * NCEP REPORT. CIRCULATION 2004; 110: [phone] 31 TSH REFERENCE RANGE: FIRST TRIMESTER - 0.20 - 4.70 mU/L SECOND TRIMESTER - 0.30 - 4.10 mU/L THIRD TRIMESTER - 0.40 - 2.70 mU/L 32 LDL-CHOLESTEROL RISK CATEGORY* GOAL VERY HIGH (E.G. DIABETES + CVD) <70 MG/DL HIGH (DIABETICS; CHD RISK EQUIVALENTS) <100 MG/DL MODERATELY HIGH (MULTIPLE(2+) RISK FACTORS) <130 MG/DL 0 TO 1 RISK FACTORS <160 MG/DL * NCEP REPORT. CIRCULATION 2004; 110: [phone] 33 GLUCOSE REFERENCE RANGE BASED ON FASTING SPECIMEN. 34 Specimen: [id number] - TESTS: BUN, CRE FAXED PER REQUEST - @ 8873 03/25/08,(LAB.SLB) FAX TO DR BRUCE [phone] TEST: BUN TEST: CRE 35 FASTING 36 HDL REFERENCE RANGES ADULTS (20 YEARS & OLDER) DESIRABLE: > OR=60 MG/DL HIGHER RISK: <40 MG/DL 37 LDL-CHOLESTEROL RISK CATEGORY* GOAL VERY HIGH (E.G. DIABETES + CVD) <70 MG/DL HIGH (DIABETICS; CHD RISK EQUIVALENTS) <100 MG/DL MODERATELY HIGH (MULTIPLE(2+) RISK FACTORS) <130 MG/DL 0 TO 1 RISK FACTORS <160 MG/DL * NCEP REPORT. CIRCULATION 2004; 110: 227-239 38 HDL REFERENCE RANGES ADULTS (20 YEARS & OLDER) DESIRABLE: > OR=60 MG/DL HIGHER RISK: <40 MG/DL 39 LDL-CHOLESTEROL RISK CATEGORY* GOAL VERY HIGH (E.G. DIABETES + CVD) <70 MG/DL HIGH (DIABETICS; CHD RISK EQUIVALENTS) <100 MG/DL MODERATELY HIGH (MULTIPLE(2+) RISK FACTORS) <130 MG/DL 0 TO 1 RISK FACTORS <160 MG/DL * NCEP REPORT. CIRCULATION 2004; 110: 227-239 40 GLUCOSE REFERENCE RANGE BASED ON FASTING SPECIMEN. 41 SPECIMEN CONTAINS NORMAL URETHRAL OR PERINEAL DAVE AND DOES NOT SUGGEST URINARY TRACT INFECTION 100^75-100,000 ORGANISMS/ML (MANY)^CCU Procedures Date Code Description Status 12/08/2014 77571 EKG-Tracing & Report Completed 12/01/2014 47799 Spirometry Graphic Record/Max Voluntary Vent Completed 12/01/2014 65603 Non-Invcorrotid/Comp /Bilat Study Completed 11/24/2014 20491 Echocardiography Completed 12/07/2013 [id number] Mammogram Completed 10/23/2009 02913 EKG-Tracing & Report Completed 10/17/2009 17254 Non-Invcorrotid/Comp /Bilat Study Completed 10/17/2009 37813 Echocardiography Completed 11/28/2008 39746 Bone Density,Vertebral Fracture Completed 11/28/2008 97586 Bone Density Completed 11/28/2008 333921529 Bone Mineral Density Test Completed 11/22/2008 30505 EKG-Tracing & Report Completed Encounters Type Date Location Provider Dx Diagnosis Office Visit 06/23/2018 Main Office Thelma Gauss, M.D. J45.30 Mild persistent 1:30p asthma, uncomplicated E78.5 Hyperlipidemia, unspecified Z12.31 Encntr screen mammogram for malignant neoplasm of breast G47.00 Insomnia, unspecified Office Visit 03/12/2018 12:00p Main Office Thelma Bruce, N39.0 Urinary tract M.D. infection, site not specified J45.30 Mild persistent asthma, uncomplicated Office Visit 07/21/2017 3:15p Main Office Thelma Bruce, J01.90 Acute sinusitis, M.D. unspecified Office Visit 06/18/2017 10:30a Main Office Thelma Bruce, E78.5 Hyperlipidemia, M.D. unspecified Office Visit 03/28/2015 10:30a Main Office Brock Iqbal MD 477.8 Rhinitis Allergic Due To Other Allergen Office Visit 12/15/2014 10:00a Main Office Thelma Bruce, 477.90 Allergies M.D. 272.4 Hyperlipidemia Other Unspec Office Visit 08/01/2014 1:30p Main Office Thelma Bruce, 486 Pneumonia Organism M.D. Unspec Office Visit 05/31/2014 10:15a Main Office Thelma Bruce, 272.4 Hyperlipidemia Other M.D. Unspec 268.9 Vitamin D Deficiency Unspec 786.09 Dyspnea & Respiratory Abnormalities Other Office Visit 11/29/2013 11:30a Main Office Thelma Bruce, 272.4 Hyperlipidemia Other M.D. Unspec 268.9 Vitamin D Deficiency Unspec Office Visit 08/31/2013 11:30a Main Office Thelma Bruce, 272.4 Hyperlipidemia Other M.D. Unspec V03.82 Streptococcus Pneumoniae Vaccination Spec Other V76.2 Screening Malignant Neoplasm Cervix Office Visit 05/20/2011 10:30a Main Office Thelma Bruce, 272.4 Hyperlipidemia Other M.D. Unspec Office Visit 10/30/2009 11:15a Main Office Thelma Bruce, 272.4 Hyperlipidemia Other M.D. Unspec Office Visit 08/02/2009 1:45p Main Office Thelma Bruce, 535.00 Gastritis Acute W/O M.D. Hemorrhage Office Visit 07/06/2009 11:00a Main Office Thelma Bruce, 625.6 Stress Incontinence M.D. Female Office Visit 05/08/2009 11:00a Main Office Thelma Bruce, 272.4 Hyperlipidemia Other M.D. Unspec Office Visit 12/12/2008 11:30a Main Office Thelma Bruce, 473.90 Sinusitis M.D. 272.4 Hyperlipidemia Other Unspec 307.46 Sleep Arousal Disorder Office Visit 07/21/2008 10:15a Main Office Thelma Bruce, 518.89 Lung Disease Other M.D. Not Elsewhere Class 307.46 Sleep Arousal Disorder 300.4 Dysthymic Disorder Office Visit 04/26/2008 10:00a Main Office Thelma Bruce, 300.4 Dysthymic Disorder M.D. Office Visit 03/28/2008 10:00a Main Office Thelma Bruce, 518.89 Lung Disease Other M.D. Not Elsewhere Class 724.3 Sciatica Office Visit 03/23/2008 2:15p Main Office Thelma Bruce M.D. 518.0 Pulmonary Collapse 724.3 Sciatica Office Visit 05/04/2007 11:00a Main Office Thelma Bruce, 599.00 UTI / Urosepsis M.D. Infection Office Visit 10/30/2006 11:00a Main Office Thelma Bruce, 466.00 Acute Bronchitis M.D. 599.00 UTI / Urosepsis Infection 460.00 Upper Respiratory Infection Office Visit 06/23/2006 2:45p Main Office Thelma Bruce M.D. 272.40 Hyperlipidemia V04.81 Need For Prophylactic Vaccination & Inoculation/Influenza Office Visit 05/19/2006 11:30a Main Office Thelma Bruce 272.40 Hyperlipidemia M.D. Office Visit 01/20/2006 2:30p Main Office Thelma Bruce, 414.01 Coronary M.D. Atherosclerosis [place] 272.40 Hyperlipidemia 627.2 Menopausal Or Female Climacteric State, Symptomatic Plan of Treatment Future Appointment(s):03/16/2019 8:00 am - Nurse at Main Btcxsh1603/22/2019 10: 15 am - Thelma Bruce M.D. at Main Ntuxmt7909/22/2018 - Thelma Bruce M.D.J45.30 Mild persistent asthma, uncomplicatedComments:continue inhalers and avoid triggers. To call for persistent cough, fevers continue with pulmonary rehab and regular check of peak flow. will update flu and pneumonia vaccine as needed. call for increased use of ogvvqnppS16.5 Hyperlipidemia, unspecifiedComments:does not want to take statin discussed red yeast rice may also consider fish oil recheck cholesterolin Feb discussed regular exercise slight improvement in labs continue diet red yeast rice exercise encouragedFollow up:Followup:. (Follow up)Followup:. (Follow up)6 months with lipid profile
--- OUTSIDE RECORDS SUMMARY | 2018-10-02 10:23 | XMS REPORT | Continuity of Care Document ---
:1950 External Reference #:[id number] Author Name Thelma Bruce M.D. Address [address] [place] [address] Care Team Providers Name Role Phone Thelma Bruce MD Primary Care Physician Unavailable Payers Date Identification Numbers Payment Provider Subscriber Policy Number: [id number] Medicare Blue Ppo [employer]hum[employer] Number: [id number] [address] [facility] PayID: [id number] [address] [place] [address] Advance Directives Description No Information Available Problems [...] 5mg 90caps 1 tab by G47.00 mouth Gauss, every M.D. night at bedtime Work Note 07/21 Active May return J01.90 to work Teo, M.D. 07/24 Ventolin HFA 08/01 Active Aerosol 108(90Bas 1units 2 puff J18.9 e) four times Teo, mcg/Act a day as M.D. needed Flonase Active Suspension 50mcg/Act one Unknown Allergy Relief /0000 inhalation each nostril every day Red Yeast Rice 06/23 Hx Capsules 600mg 120caps every day E78.5 Tony Bruce M.D. 09/22 Sulfamethoxazo 03/12 Hx Tablets 800-160mg 14tabs 1 by mouth N39.0 Thelma le/Trimethopri /2017 twice a Teo m DS - day M.DFrances 06/23 Amoxicillin/Cl 08/01 [...] 535.00 may take Tony Bruce bid for M.DFrances 10/30 next days Compazine 08/02 Hx 10mg 30units 1 po q 6 535.00 hours prn Teo - nausea M.DFrances 10/30 Compazine 08/02 Hx 30units 1 pr q 6 Thelma Suppositories hours Tony Bruce M.D. 10/30 Work Note 08/02 Hx may return 535.00 to work Tony Bruce Sat Dec Gena 10/30 18, 2008 Enablex 07/06 Hx Tablets ER 7.5mg samples 625.6 24HR Tony Bruce M.D. 10/30 Work Note 12/14 Hx may return to work no Tony Bruce restrictio Gena 05/08 ns 12/15/08 Fish Oil 12/12 Hx Capsules 1000mg 1 po q day 272.4 Tony Bruce M.D. 05/20 Amoxicillin 12/12 Hx Capsules 500mg 20caps 1 tablets 473.90 po bid Tony Bruce M.D. 05/08 Citalopram 04/26 Hx Tablets 10mg 30tabs 1 po qd 300.4 Thelma Hydrobromide Tony Bruce M.D. 05/08 Lunesta 04/26 Hx Tablets 3mg 30tabs 1 po qhs 300.4 Thelma Tony Bruce M.D. 05/08 Flexeril 03/28 Hx Tablets 5mg 30tabs 1 po tid 724.3 prn Tony Bruce M.D. 04/26 Work Note 03/28 Hx patient 724.3 will not Teo - be allowed M.Mika 12/12 to return to work until 03/31/08 [...] 1 by mouth Thelma /0000 every 8 Teo - hours as M.DFrances 03/12 needed for cough Immunizations CPT Code Status Date Vaccine Lot # 29516 Given 08/31/2013 [place] [address] Given 06/23/2006 Influenza Vaccine 72570 Vital Signs Date Vital Result Comment 09/22/2018 [...] Cholesterol 281 mg/dL High <[address] [place] [address] [phone] HDL Cholesterol 40 mg/dL Low >50 Cholesterol/HDL Ratio 7.0 CALC High <5.0 LDL Chol,Calculated 202 mg/dL High 0-100 2 Triglycerides 209 mg/dL High <150 Non-HDL Cholesterol 241 mg/dL High <130 3 CBC W/ Diff & PLT 06/12/2018 [facility] WBC 6.1 thous/L 3.8-10.[address] [place] [address] [phone] RBC 4.93 mill/L 3.80-5.10 Hemoglobin 14.0 g/dL 11.7-15.5 Hematocrit 41.5 % 35.0-45.0 MCV 84.3 FL 80.0-100.0 MCH 28.4 pg 27.0-33.0 MCHC 33.7 g/dL 32.0-36.0 RDW 14.1 % 11.0-15.0 Platelet Count 293 thous/L 140-400 MPV 8.9 FL 7.5-12.5 Neutrophils,Absolute 3350 cells/L 9971-3593 Bands,Absolute PENDING Metamyelocytes,Absolute PENDING Myelocytes,Absolute PENDING Promyelocytes,Absolute [...] [facility] Sodium 138 mmol/L 135-[address] [place] [address] [phone] Potassium 4.3 mmol/L 3.5-5.3 Chloride 104 mmol/L 98-110 Carbon Dioxide 26 mmol/L 20-32 5 Glucose 96 mg/dL 65-99 6 Urea Nitrogen (BUN) 21 mg/dL 7-25 Creatinine 0.70 mg/dL 0.50-0.99 7 BUN/Creatinine Ratio 30.0 High 6-22 Lipid Panel 06/12/2018 [facility] Cholesterol 294 mg/dL High <[address] [place] [address] [phone] HDL Cholesterol 43 mg/dL Low >50 Cholesterol/HDL Ratio 6.8 CALC High <5.0 LDL Chol,Calculated 198 mg/dL High 0-100 8 Triglycerides 313 mg/dL High <150 Non-HDL Cholesterol 251 mg/dL High <130 9 Laboratory test 03/29/2016 [facility] Urine Culture SEE RESULT 10, [address] [place] [address] [phone] CBC W/ Diff & 12/08/2014 [facility] WBC 6.2 3.8-[address] thous/L 0.8 [place] [address] [phone] RBC 4.90 mill/L 3.80-5.10 Hemoglobin 13.9 g/dL 11.7-15.5 Hematocrit 41.9 % 35.0-45.0 MCV 85.6 FL 80.0-100.0 MCH 28.5 pg 27.0-33.0 MCHC 33.2 g/dL 32.0-36.0 RDW 14.1 % 11.0-15.0 Platelet Count 276 thous/L 140-400 Platelet Sufficiency PENDING Neutrophils,Absolute 3680 cells/L 3955-6691 Bands,Absolute PENDING Metamyelocytes,Absolute PENDING Myelocytes,Absolute PENDING Promyelocytes,Absolute [...] [facility] Sodium 139 mmol/L 135-[address] [place] [address] [phone] Potassium 4.2 mmol/L 3.5-5.3 Chloride 103 mmol/L 98-110 Carbon Dioxide 27 mmol/L 19-30 Calcium 9.0 mg/dL 8.6-10.4 Glucose 86 mg/dL 65-99 13 Urea Nitrogen 22 mg/dL 7-25 Creatinine 0.75 mg/dL 0.50-0.99 14 BUN/Creatinine Ratio 29.9 High 6-22 Lipid Panel 12/08/2014 [facility] Cholesterol 281 mg/dL High 125-[address] [place] [address] [phone] HDL Cholesterol 42 mg/dL Low > Or=46 Cholesterol/HDL Ratio 6.7 High < Or=5.0 LDL Chol,Calculated 194 mg/dL High <130 15 Triglycerides 227 mg/dL High <150 Non-HDL Cholesterol 239 mg/dL High 16 TSH & T4,Free 12/08/2014 [facility] TSH 1.96 mIU/L 0.40-4.[address] [place] [address] [phone] T4,Free 1.3 ng/dL 0.8-1.8 [facility] 12/08/2014 [facility] Vitamin 21 ng/mL Low 30-100 25-Hydroxy D [address] D,25-Oh,Total (D2,D3) LC/[place] [address] [phone] Vitamin D,25-Oh,D3 21 ng/mL Vitamin D,25-Oh,D2 <4 ng/mL 18 Laboratory test 05/24/2014 [facility] Direct LDL 203 mg/dL High <130 [address] [place] [address] [phone] CBC W/ Diff & 11/22/2013 [facility] WBC 7.2 3.8-10.[address] thous/[place] [address] [phone] RBC 4.89 mill/L 3.80-5.10 Hemoglobin 14.2 g/dL 11.7-15.5 Hematocrit 41.0 % 35.0-45.0 MCV 83.9 FL 80.0-100.0 MCH 29.1 pg 27.0-33.0 MCHC 34.6 g/dL 32.0-36.0 RDW 13.5 % 11.0-15.0 Platelet Count 271 thous/L 140-400 Neutrophils,Absolute 4410 cells/L 8651-8634 Lymphocytes,Absolute 2140 cells/L 850-3900 Monocytes,Absolute 400 cells/L 200-950 Eosinophils,Absolute 180 cells/L 15-500 Basophils,Absolute 60 cells/L 0-200 Total Neutrophils,% 61 % Not Established Total Lymphocytes,% 30 % Not Established Monocytes,% 6 % Not Established Eosinophils,% 3 % Not Established Basophils,% 1 % Not Established BMP W/O Egfr 11/22/2013 [facility] Sodium 141 mmol/L 135-[address] [place] [address] [phone] Potassium 4.3 mmol/L 3.5-5.3 Chloride 104 mmol/L 98-110 Carbon Dioxide 26 mmol/L 19-30 Calcium 9.5 mg/dL 8.6-10.4 Glucose 87 mg/dL 65-99 20 Urea Nitrogen 21 mg/dL 7-25 Creatinine 0.72 mg/dL 0.50-0.99 21 BUN/Creatinine Ratio 28.5 High 6-22 Lipid Panel 11/22/2013 [facility] Cholesterol 313 mg/dL High 125-[address] [place] [address] [phone] HDL Cholesterol 45 mg/dL Low > Or=46 Cholesterol/HDL Ratio 7.0 High < Or=5.0 LDL Chol,Calculated 218 mg/dL High <130 22 Triglycerides 249 mg/dL High <150 Non-HDL Cholesterol 268 mg/dL High 23 TSH & T4,Free 11/22/2013 [facility] TSH 2.98 mIU/L 0.40-4.[address] [place] [address] [phone] T4,Free 1.2 ng/dL 0.8-1.8 [facility] 11/22/2013 [facility] Vitamin 18 ng/mL Low 30-100 25-Hydroxy D [address] D,25-Oh,Total (D2,D3) LC/[place] [address] [phone] Vitamin D,25-Oh,D3 18 ng/mL Vitamin D,25-Oh,D2 <4 ng/mL 25 Urine Culture & 06/29/2010 [facility] Urine Culture SN1 [address] [place] [address] [phone] TSH & T4,Free 10/23/2009 [facility] TSH,3RD 2.05 0.40-[address] Generation mIU/L .50 [place] [address] [phone] T4,Free 1.1 ng/dL 0.8-1.8 CBC W/ Diff & PLT 10/23/2009 [facility] WBC 5.2 thous/L 3.8-10.[address] [place] [address] [phone] RBC 4.51 mill/L 3.80-5.10 Hemoglobin 13.1 g/dL 11.7-15.5 Hematocrit 38.9 % 35.0-45.0 MCV 86.2 FL 80.0-100.0 MCH 28.9 pg 27.0-33.0 MCHC 33.6 g/dL 32.0-36.0 RDW 13.5 % 11.0-15.0 Platelet Count 254 thous/L 140-400 Platelet Sufficiency NORMAL Normal Neutrophils,Absolute 3010 cells/L 0552-5415 Bands,Absolute DNR cells/L 0-750 Metamyelocytes,Absolute DNR cells/L [...] Lab Cholesterol 289 mg/dL High 125-200 [address] [place], [place] [address] [phone] HDL Cholesterol 44 mg/dL Low > Or=46 Triglycerides 217 mg/dL High <150 Cholesterol/HDL Ratio 6.6 High < Or=5.0 LDL Chol,Calculated 202 mg/dL High <130 28 Basic Metabolic Panel 10/23/2009 [facility] Sodium 140 mmol/L 135-146 [address] [place] [address] [phone] Potassium 4.3 mmol/L 3.5-5.3 Chloride 106 mmol/L 98-110 Carbon Dioxide 26 mmol/L 21-33 Calcium 9.2 mg/dL 8.6-10.2 Glucose 99 mg/dL 65-99 29 Urea Nitrogen 18 mg/dL 7-25 Creatinine 0.76 mg/dL 0.60-1.18 BUN/Creatinine Ratio 23.9 High 6-22 Egfr Non-Afr. Libyan >60 ML/MIN/1.73M2 > Or=60 Egfr >60 ML/MIN/1.73M2 > Or=60 Lipid Panel 05/02/2009 [facility] Cholesterol 267 mg/dL High 125-200 [address] [place] [address] [phone] HDL Cholesterol 47 mg/dL > Or=46 Triglycerides 205 mg/dL High <150 Cholesterol/HDL Ratio 5.7 High < Or=5.0 LDL Chol,Calculated 179 mg/dL High <130 30 TSH & T4,Free 11/22/2008 [facility] TSH,3RD 2.60 mU/L 0.40-4.[address] [place] [address] [phone] T4,Free 1.3 ng/dL 0.8-1.8 CBC W/ Diff & PLT 11/22/2008 [facility] WBC 5.2 thous/L 3.8-10.[address] [place], [place] [address] [phone] RBC 4.86 mill/L 3.80-5.10 Hemoglobin 14.2 g/dL 11.7-15.5 Hematocrit 40.9 % 35.0-45.0 MCV 84.1 FL 80.0-100.0 MCH 29.2 pg 27.0-33.0 MCHC 34.7 g/dL 32.0-36.0 RDW 13.9 % 11.0-15.0 Platelet Count 272 thous/L 140-400 Platelet Sufficiency NORMAL Normal Neutrophils,Absolute 2860 cells/L 3831-4579 Bands,Absolute DNR cells/L 0-750 Metamyelocytes,Absolute DNR cells/L [...] Lab Cholesterol 314 mg/dL High 125-[address] [place], [place] [address] [phone] HDL Cholesterol 43 mg/dL Low > Or=46 Triglycerides 355 mg/dL High <150 Cholesterol/HDL Ratio 7.3 High < Or=5.0 LDL Chol,Calculated 200 mg/dL High <130 32 Basic Metabolic Panel 11/22/2008 [facility] Sodium 139 mmol/L 135-[address] [place] [address] [phone] Potassium 4.4 mmol/L 3.5-5.3 Chloride 103 mmol/L 98-110 Carbon Dioxide 29 mmol/L 21-33 Calcium 9.0 mg/dL 8.6-10.2 Glucose 90 mg/dL 65-99 33 Urea Nitrogen 16 mg/dL 7-25 Creatinine 0.76 mg/dL 0.60-1.18 BUN/Creatinine Ratio 20.9 6-22 Egfr Non-Afr. Libyan >60 ML/MIN/1.73M2 > Or=60 Egfr >60 ML/MIN/1.73M2 > Or=60 Laboratory test finding 03/25/2008 [facility] BUN 19 mg/dL 5-[address] [place], [place] [address] [phone] Creatinine 0.8 mg/dL 0.5-1.4 Lipid Panel 06/16/2006 [facility] Cholesterol 295 mg/dL High <[address] [place] [address] [phone] HDL Cholesterol 54 mg/dL >40 36 Cholesterol/HDL Ratio 5.5 High <4.4 LDL Chol,Calculated 203 mg/dL High <130 37 Triglycerides 190 mg/dL High <150 Lipid Panel 05/12/2006 [facility] Cholesterol 292 mg/dL High <[address] [place] [address] [phone] HDL Cholesterol 46 mg/dL >40 38 Triglycerides 232 mg/dL High <150 Cholesterol/HDL Ratio 6.3 High <4.4 LDL Chol,Calculated 200 mg/dL High <130 39 CBC W/ Diff & PLT 05/12/2006 [facility] WBC 5.4 thous/L 3.8-10.[address] [place] [address] [phone] RBC 4.75 mill/L 3.80-5.10 Hemoglobin 14.0 g/dL 11.7-15.5 Hematocrit 40.3 % 35.0-45.0 MCV 84.8 FL 80.0-100.0 MCH 29.4 pg 27.0-33.0 MCHC 34.7 g/dL 32.0-36.0 RDW 13.6 % 11.0-15.0 Platelet Count 279 thous/L 140-400 Platelet Sufficiency NORMAL Normal Neutrophils,Absolute 2600 cells/L 8184-4027 Bands,Absolute DNR cells/L 0-750 Metamyelocytes,Absolute DNR cells/L [...] [facility] TSH 1.63 mU/L 0.40-5.[address] [place] [address] [phone] T4,Free 1.3 ng/dL 0.8-1.8 Laboratory test 05/12/2006 [facility] Glucose 97 mg/dL 65-99 [address] [place] [address] [phone] Laboratory test 02/19/2006 [facility] Urine Culture SPECIMEN [address] [place] <[place] [address] NOTE> [phone] 1 FASTING 2 LDL-C levels > or equal to 190 mg/dL may indicate familial hypercholesterolemia (FH). Clinical assessment and measurement of blood lipid levels should be considered for all first degree relatives of patients with an FH diagnosis. For questions about testing for familial hypercholesterolemia, please call [facility] Client Services at [email or web address]. gus Walter al.J National Lipid Association Recommendations for Patient-Centered Management of Dyslipidemia:Part 1 Journal of Clinical Lipidology 2015;9(2),129-169. 3 Non-HDL level > hz=860 is very high and may indicate genetic [...] approximately 13% higher for people identified as -Libyan. 8 LDL-C levels > or equal to 190 mg/dL may indicate familial hypercholesterolemia (FH). Clinical assessment and measurement of blood lipid levels should be considered for all first degree relatives of patients with an FH diagnosis. gus Walter al.J National Lipid Association Recommendations for Patient-Centered Management of Dyslipidemia:Part 1 Journal of Clinical Lipidology 2015;9(2) ,129-169. 9 Non-HDL level > xg=569 is very high and may indicate genetic familial hypercholesterolemia (FH). Clinical assessment and measurement of blood lipid levels should be considered for all first-degree relatives of patients with an FH diagnosis. 10 [id number] 11 SEE RESULT BELOW Name: BHUMIKA ROSS : [address]: Estefania Balderrama MD Acct: [id number] Unit: [id number] AGE: 65 Location: [facility] Re03/29/16 SEX: F Status: DEP ER SPEC: [id number] DAVID: 03/29/16-[address] [facility] [address]: Estefania Balderrama MD REQ: [id number] RECD: 03/29/16-1328 STATUS: COMP OTHR DR: Thelma Bruce MD _ SOURCE: URINE SPDESC: ORDERED: Urine Culture COMMENTS: [id number] Procedure Result Reported Site Urine Culture Final 03/30/16- 1311 ML No Growth (<1,000 CFU/mL) * ML - MAIN LAB ([facility]) . END OF REPORT * ML=Testing performed at Main Lab DEPARTMENT OF PATHOLOGY, [address] [place] [address] Milton Hopper M.D. Director [facility] # [id number] 12 FASTING 13 GLUCOSE REFERENCE RANGE BASED ON FASTING SPECIMEN. 14 The upper reference limit for Creatinine is approximately 13% higher for people identified as -Libyan. 15 LDL-C levels > qq=217 mg/dL may include familial hypercholesterolemia (FH). Clinical [...] more information on this test, go to http://education.[employer].indeni/faq/25-OHVitaminD Effective December 19, the test order code 27949, used prior to December 19, for LC/MS/MS, will be transitioned to a carefully-selected immunoassay methodology. The new immunoassay has passed CDC standardization certifica- tion and provides high quality quantitative results that are tied back to standards from the National [employer] of [employer] and [employer]. For those patients for whom LC/MS/MS testing is appropriate, please utilize test code 47155. When LC/MS/MS is the chosen assay, utilize test code 20819 for patients >or=3 years of age, patients who are on D2 supplementation, and patients for whom a separate D2 and D3 measurement is required. For patients <3 years of age, test code 60848 should be used. Important Note Regarding Custom Panels With 25-Hydroxyvitamin D: If you currently order vitamin D testing as part of a custom panel, the LC/MS/MS vitamin D test will be maintained in your panel after December 19, 2014. If you would like to replace the test in your panel with the new immunoassay, or have any questions regarding the transition of the 06571 test code, please contact your local [employer] sales marketing coordinator. 19 LDL-CHOLESTEROL RISK CATEGORY* GOAL VERY HIGH [...] approximately 13% higher for people identified as -Libyan. 22 LDL-CHOLESTEROL RISK CATEGORY* GOAL VERY HIGH [...] more information on this test, go to http://education.[employer].indeni/faq/25-OHVitaminD 26 SCANT NORMAL URETHRAL OR PERINEAL DAVE [...] RANGE BASED ON FASTING SPECIMEN. 34 Specimen: [id number] - TESTS: BUN, CRE FAXED PER REQUEST - @ 4070 03/25/08,([facility]) FAX TO DR BRUCE [phone] TEST: BUN TEST: CRE 35 FASTING 36 [...] (MANY)^CCU Procedures Date Code Description Status 12/08/2014 17498 EKG-Tracing & Report Completed 12/01/2014 52978 Spirometry Graphic Record/Max Voluntary Vent Completed 12/01/2014 66154 Non-Invcorrotid/Comp /Bilat Study Completed 11/24/2014 48475 Echocardiography Completed 12/07/2013 [id number] Mammogram Completed 10/23/2009 15884 EKG-Tracing & Report Completed 10/17/2009 06836 Non-Invcorrotid/Comp /Bilat Study Completed 10/17/2009 80200 Echocardiography Completed 11/28/2008 84190 Bone Density,Vertebral Fracture Completed 11/28/2008 13950 Bone Density Completed 11/28/2008 [id number] Bone Mineral Density Test Completed 11/22/2008 03873 EKG-Tracing & Report Completed Encounters Type Date Location Provider Dx Diagnosis Office Visit 06/23/2018 Main Office Thelma Bruce M.D. J45.30 Mild persistent 1:30p asthma, uncomplicated E78.5 Hyperlipidemia, unspecified Z12.31 Encntr screen mammogram for malignant neoplasm of breast G47.00 Insomnia, unspecified Office Visit 03/12/2018 12:00p Main Office Thelma Bruce, N39.0 Urinary tract M.D. infection, site not specified J45.30 Mild persistent asthma, uncomplicated Office Visit 07/21/2017 3:15p Main Office Thelma Bruce, J01.90 Acute sinusitis, M.D. unspecified Office Visit 06/18/2017 10:30a Main Office Thelma Bruce E78.5 Hyperlipidemia, M.D. unspecified Office Visit 03/28/2015 [...] Office Visit 10/30/2009 11:15a Main Office Thelma Bruce 272.4 Hyperlipidemia Other M.D. Unspec Office Visit [...] Office Visit 01/20/2006 2:30p Main Office Thelma Burce 414.01 Coronary M.D. Atherosclerosis [place] 272.40 Hyperlipidemia 627.2 Menopausal Or Female Climacteric State, Symptomatic Plan of Treatment Future Appointment(s):03/16/2019 8:00 am - Nurse at Main [id number]/22/2019 10: 15 am - Thelma Bruce M.D. at Main Sbuvmm7109/22/2018 - Thelma Bruce M.D.J45.30 Mild persistent asthma, uncomplicatedComments:continue inhalers and avoid triggers. To call for persistent cough, fevers continue with pulmonary rehab and regular check of peak flow. will update flu and pneumonia vaccine as needed. call for increased use of ckavbdzuZ80.5 Hyperlipidemia, unspecifiedComments:does not want to take statin discussed red yeast rice may also consider fish oil recheck cholesterolin Feb discussed regular exercise slight improvement in labs continue diet red yeast rice exercise encouragedFollow up:Followup:. (Follow up)Followup:. (Follow up)6 months with lipid profile
--- OUTSIDE RECORDS SUMMARY | 2018-10-02 10:23 | XMS REPORT | Continuity of Care Document ---
:1950 External Reference #:[id number] Author Name PrashanthBilly wolferobbimarquise Care Team Providers Name Role Phone Thelma Bruce MD Primary Care Physician Unavailable Payers Date Identification Numbers Payment Provider Subscriber Policy Number: [id number] Medicare Blue Ppo Bhumika Ross Group Number: [id number] PayID: [id number] [address] [place] [id number] Advance Directives Description No Information Available Problems [...] 5mg 90caps 1 tab by G47.00 mouth Teo, every M.D. night at bedtime Work Note [...] 14tabs 1 by mouth N39.0 Thelma le/Trimethopri twice a jensen Bruce DS - day [...] 30tabs 1 po qd 535.00 may take Teo - bid for M.D. 10/30 next days Compazine 08/02 Hx 10mg 30units 1 po q 6 535.00 hours prn Tony Bruce nausea M.D. 10/30 Compazine 08/02 Hx 30units 1 pr [...] 15tabs 1 PO bid 466.00 Thelma SMX /2006 mg Tony Bruce M.D. 04/26 Zetia 05/19 Hx Tablets 10mg 90tabs 1 PO qd Thelma Tony Bruce.Mika 08/01 Fish Oil 01/20 Hx Tablets 1000mg [...] twice a - day as 03/12 needed /2017 Benzonatate Hx Capsules 100mg 60caps 1 by mouth Thelma /0000 every 8 Teo, - hours as M.D. 03/12 needed for cough Immunizations CPT Code Status Date Vaccine Lot # 44742 Given 08/31/2013 [place] [address] Given 06/23/2006 Influenza Vaccine [id number] Vital Signs Date Vital Result Comment 09/22/2018 [...] Cholesterol 281 mg/dL High <199 1 [address] [facility] [place] [address] [phone] HDL Cholesterol 40 mg/dL Low >50 Cholesterol/HDL Ratio 7.0 CALC High <5.0 LDL Chol,Calculated 202 mg/dL High 0-100 2 Triglycerides 209 mg/dL High <150 Non-HDL Cholesterol 241 mg/dL High <130 3 CBC W/ Diff & PLT 06/12/2018 [facility] WBC 6.1 thous/L 3.8-10.[address] [place] [address] [phone] RBC 4.93 mill/L 3.80-5.10 Hemoglobin 14.0 g/dL 11.7-15.5 Hematocrit 41.5 % 35.0-45.0 MCV 84.3 FL 80.0-100.0 MCH 28.4 pg 27.0-33.0 MCHC 33.7 g/dL 32.0-36.0 RDW 14.1 % 11.0-15.0 Platelet Count 293 thous/L 140-400 MPV 8.9 FL 7.5-12.5 Neutrophils,Absolute 3350 cells/L 3148-5745 Bands,Absolute PENDING Metamyelocytes,Absolute PENDING Myelocytes,Absolute PENDING Promyelocytes,Absolute [...] [facility] Sodium 138 mmol/L 135-146 [address] [facility] [place] [address] [phone] Potassium 4.3 mmol/L 3.5-5.3 Chloride 104 mmol/L 98-110 Carbon Dioxide 26 mmol/L 20-32 5 Glucose 96 mg/dL 65-99 6 Urea Nitrogen (BUN) 21 mg/dL 7-25 Creatinine 0.70 mg/dL 0.50-0.99 7 BUN/Creatinine Ratio 30.0 High 6-22 Lipid Panel 06/12/2018 [facility] Cholesterol 294 mg/dL High <[address] [place] [address] [phone] HDL Cholesterol 43 mg/dL Low >50 Cholesterol/HDL Ratio 6.8 CALC High <5.0 LDL Chol,Calculated 198 mg/dL High 0-100 8 Triglycerides 313 mg/dL High <150 Non-HDL Cholesterol 251 mg/dL High <130 9 Laboratory test 03/29/2016 [facility] Urine Culture SEE RESULT 10, [address] [place] [address] [phone] CBC W/ Diff & 12/08/2014 [facility] WBC 6.2 3.8-[address] thous/L 0.8 [place] [address] [phone] RBC 4.90 mill/L 3.80-5.10 Hemoglobin 13.9 g/dL 11.7-15.5 Hematocrit 41.9 % 35.0-45.0 MCV 85.6 FL 80.0-100.0 MCH 28.5 pg 27.0-33.0 MCHC 33.2 g/dL 32.0-36.0 RDW 14.1 % 11.0-15.0 Platelet Count 276 thous/L 140-400 Platelet Sufficiency PENDING Neutrophils,Absolute 3680 cells/L 9889-8071 Bands,Absolute PENDING Metamyelocytes,Absolute PENDING Myelocytes,Absolute PENDING Promyelocytes,Absolute [...] [facility] Sodium 139 mmol/L 135-[address] [place] [address] [phone] Potassium 4.2 mmol/L 3.5-5.3 Chloride 103 mmol/L 98-110 Carbon Dioxide 27 mmol/L 19-30 Calcium 9.0 mg/dL 8.6-10.4 Glucose 86 mg/dL 65-99 13 Urea Nitrogen 22 mg/dL 7-25 Creatinine 0.75 mg/dL 0.50-0.99 14 BUN/Creatinine Ratio 29.9 High 6-22 Lipid Panel 12/08/2014 [facility] Cholesterol 281 mg/dL High 125-[address] [place] [address] [phone] HDL Cholesterol 42 mg/dL Low > Or=46 Cholesterol/HDL Ratio 6.7 High < Or=5.0 LDL Chol,Calculated 194 mg/dL High <130 15 Triglycerides 227 mg/dL High <150 Non-HDL Cholesterol 239 mg/dL High 16 TSH & T4,Free 12/08/2014 [facility] TSH 1.96 mIU/L 0.40-4.[address] [place], [place] [id number] [phone] T4,Free 1.3 ng/dL 0.8-1.8 [facility] 12/08/2014 [facility] Vitamin 21 ng/mL Low 30-100 25-Hydroxy D [address] D,25-Oh,Total (D2,D3) LC/[place] [address] [phone] Vitamin D,25-Oh,D3 21 ng/mL Vitamin D,25-Oh,D2 <4 ng/mL 18 Laboratory test 05/24/2014 [facility] Direct LDL 203 mg/dL High <130 [address] [place] [address] [phone] CBC W/ Diff & 11/22/2013 [facility] WBC 7.2 3.8-10.[address] thous/[place] [address] [phone] RBC 4.89 mill/L 3.80-5.10 Hemoglobin 14.2 g/dL 11.7-15.5 Hematocrit 41.0 % 35.0-45.0 MCV 83.9 FL 80.0-100.0 MCH 29.1 pg 27.0-33.0 MCHC 34.6 g/dL 32.0-36.0 RDW 13.5 % 11.0-15.0 Platelet Count 271 thous/L 140-400 Neutrophils,Absolute 4410 cells/L 0578-1726 Lymphocytes,Absolute 2140 cells/L 850-3900 Monocytes,Absolute 400 cells/L 200-950 Eosinophils,Absolute 180 cells/L 15-500 Basophils,Absolute 60 cells/L 0-200 Total Neutrophils,% 61 % Not Established Total Lymphocytes,% 30 % Not Established Monocytes,% 6 % Not Established Eosinophils,% 3 % Not Established Basophils,% 1 % Not Established BMP W/O Egfr 11/22/2013 [facility] Sodium 141 mmol/L 135-[address] [place] [address] [phone] Potassium 4.3 mmol/L 3.5-5.3 Chloride 104 mmol/L 98-110 Carbon Dioxide 26 mmol/L 19-30 Calcium 9.5 mg/dL 8.6-10.4 Glucose 87 mg/dL 65-99 20 Urea Nitrogen 21 mg/dL 7-25 Creatinine 0.72 mg/dL 0.50-0.99 21 BUN/Creatinine Ratio 28.5 High 6-22 Lipid Panel 11/22/2013 [facility] Cholesterol 313 mg/dL High 125-[address] [place] [address] [phone] HDL Cholesterol 45 mg/dL Low > Or=46 Cholesterol/HDL Ratio 7.0 High < Or=5.0 LDL Chol,Calculated 218 mg/dL High <130 22 Triglycerides 249 mg/dL High <150 Non-HDL Cholesterol 268 mg/dL High 23 TSH & T4,Free 11/22/2013 [facility] TSH 2.98 mIU/L 0.40-4.[address] [place] [address] [phone] T4,Free 1.2 ng/dL 0.8-1.8 [facility] 11/22/2013 [facility] Vitamin 18 ng/mL Low 30-100 25-Hydroxy D [address] D,25-Oh,Total (D2,D3) LC/MS [place], [place] [id number] [phone] Vitamin D,25-Oh,D3 18 ng/mL Vitamin D,25-Oh,D2 <4 ng/mL 25 Urine Culture & 06/29/2010 [facility] [employer] [facility] Urine Culture SN1 [address] [place] [address] [phone] TSH & T4,Free 10/23/2009 [facility] TSH,3RD 2.05 0.40-[address] Generation mIU/L .50 [place], [place] [id number] [phone] T4,Free 1.1 ng/dL 0.8-1.8 CBC W/ Diff & PLT 10/23/2009 [facility] WBC 5.2 thous/L 3.8-10.[address] [place] [address] [phone] RBC 4.51 mill/L 3.80-5.10 Hemoglobin 13.1 g/dL 11.7-15.5 Hematocrit 38.9 % 35.0-45.0 MCV 86.2 FL 80.0-100.0 MCH 28.9 pg 27.0-33.0 MCHC 33.6 g/dL 32.0-36.0 RDW 13.5 % 11.0-15.0 Platelet Count 254 thous/L 140-400 Platelet Sufficiency NORMAL Normal Neutrophils,Absolute 3010 cells/L 5559-5380 Bands,Absolute DNR cells/L 0-750 Metamyelocytes,Absolute DNR cells/L [...] Lab Cholesterol 289 mg/dL High 125-[address] [place], [place] [address] [phone] HDL Cholesterol 44 mg/dL Low > Or=46 Triglycerides 217 mg/dL High <150 Cholesterol/HDL Ratio 6.6 High < Or=5.0 LDL Chol,Calculated 202 mg/dL High <130 28 Basic Metabolic Panel 10/23/2009 [facility] Sodium 140 mmol/L 135-[address] [place], [place] [address] [phone] Potassium 4.3 mmol/L 3.5-5.3 Chloride 106 mmol/L 98-110 Carbon Dioxide 26 mmol/L 21-33 Calcium 9.2 mg/dL 8.6-10.2 Glucose 99 mg/dL 65-99 29 Urea Nitrogen 18 mg/dL 7-25 Creatinine 0.76 mg/dL 0.60-1.18 BUN/Creatinine Ratio 23.9 High 6-22 Egfr Non-Afr. [place] >60 ML/MIN/1.73M2 > Or=60 Egfr >60 ML/MIN/1.73M2 > Or=60 Lipid Panel 05/02/2009 [facility] Cholesterol 267 mg/dL High 125-[address] [place] [address] [phone] HDL Cholesterol 47 mg/dL > Or=46 Triglycerides 205 mg/dL High <150 Cholesterol/HDL Ratio 5.7 High < Or=5.0 LDL Chol,Calculated 179 mg/dL High <130 30 TSH & T4,Free 11/22/2008 [facility] TSH,3RD 2.60 mU/L 0.40-4.[address] [place] [address] [phone] T4,Free 1.3 ng/dL 0.8-1.8 CBC W/ Diff & PLT 11/22/2008 [facility] WBC 5.2 thous/L 3.8-10.8 [address] [place] [address] [phone] RBC 4.86 mill/L 3.80-5.10 Hemoglobin 14.2 g/dL 11.7-15.5 Hematocrit 40.9 % 35.0-45.0 MCV 84.1 FL 80.0-100.0 MCH 29.2 pg 27.0-33.0 MCHC 34.7 g/dL 32.0-36.0 RDW 13.9 % 11.0-15.0 Platelet Count 272 thous/L 140-400 Platelet Sufficiency NORMAL Normal Neutrophils,Absolute 2860 cells/L 5691-3466 Bands,Absolute DNR cells/L 0-750 Metamyelocytes,Absolute DNR cells/L [...] Lab Cholesterol 314 mg/dL High 125-200 [address] [place] [address] [phone] HDL Cholesterol 43 mg/dL Low > Or=46 Triglycerides 355 mg/dL High <150 Cholesterol/HDL Ratio 7.3 High < Or=5.0 LDL Chol,Calculated 200 mg/dL High <130 32 Basic Metabolic Panel 11/22/2008 [facility] Sodium 139 mmol/L 135-[address] [place] [address] [phone] Potassium 4.4 mmol/L 3.5-5.3 Chloride 103 mmol/L 98-110 Carbon Dioxide 29 mmol/L 21-33 Calcium 9.0 mg/dL 8.6-10.2 Glucose 90 mg/dL 65-99 33 Urea Nitrogen 16 mg/dL 7-25 Creatinine 0.76 mg/dL 0.60-1.18 BUN/Creatinine Ratio 20.9 6-22 Egfr Non-Afr. [place] >60 ML/MIN/1.73M2 > Or=60 Egfr >60 ML/MIN/1.73M2 > Or=60 Laboratory test finding 03/25/2008 [facility] BUN 19 mg/dL 5-[address] [place] [address] [phone] Creatinine 0.8 mg/dL 0.5-1.4 Lipid Panel 06/16/2006 [facility] Cholesterol 295 mg/dL High <[address] [place] [address] [phone] HDL Cholesterol 54 mg/dL >40 36 Cholesterol/HDL Ratio 5.5 High <4.4 LDL Chol,Calculated 203 mg/dL High <130 37 Triglycerides 190 mg/dL High <150 Lipid Panel 05/12/2006 [facility] Cholesterol 292 mg/dL High <[address] [place] [address] [phone] HDL Cholesterol 46 mg/dL >40 38 Triglycerides 232 mg/dL High <150 Cholesterol/HDL Ratio 6.3 High <4.4 LDL Chol,Calculated 200 mg/dL High <130 39 CBC W/ Diff & PLT 05/12/2006 [facility] WBC 5.4 thous/L 3.8-10.[address] [place] [address] [phone] RBC 4.75 mill/L 3.80-5.10 Hemoglobin 14.0 g/dL 11.7-15.5 Hematocrit 40.3 % 35.0-45.0 MCV 84.8 FL 80.0-100.0 MCH 29.4 pg 27.0-33.0 MCHC 34.7 g/dL 32.0-36.0 RDW 13.6 % 11.0-15.0 Platelet Count 279 thous/L 140-400 Platelet Sufficiency NORMAL Normal Neutrophils,Absolute 2600 cells/L 6060-8330 Bands,Absolute DNR cells/L 0-750 Metamyelocytes,Absolute DNR cells/L [...] [facility] TSH 1.63 mU/L 0.40-5.[address] [place] [address] [phone] T4,Free 1.3 ng/dL 0.8-1.8 Laboratory test 05/12/2006 [facility] Glucose 97 mg/dL 65-[address] [place] [address] [phone] Laboratory test 02/19/2006 [facility] Urine Culture SPECIMEN [address] [place] [address] NOTE> [phone] FASTING 2 LDL-C levels > or equal to 190 mg/dL may indicate familial hypercholesterolemia (FH). Clinical assessment and measurement of blood lipid levels should be considered for all first degree relatives of patients with an FH diagnosis. For questions about testing for familial hypercholesterolemia, please call [facility] at [email or web address]. gus Walter al.J National Lipid Association Recommendations for Patient-Centered Management of Dyslipidemia:Part 1 Journal of Clinical Lipidology 2015;9(2),129-169. 3 Non-HDL level > az=995 is very high and may indicate genetic [...] approximately 13% higher for people identified as -South Korean. 8 LDL-C levels > or equal to 190 mg/dL may indicate familial hypercholesterolemia (FH). Clinical assessment and measurement of blood lipid levels should be considered for all first degree relatives of patients with an FH diagnosis. gus Walter al.J National Lipid Association Recommendations for Patient-Centered Management of Dyslipidemia:Part 1 Journal of Clinical Lipidology 2015;9(2) ,129-169. 9 Non-HDL level > ka=058 is very high and may indicate genetic familial hypercholesterolemia (FH). Clinical assessment and measurement of blood lipid levels should be considered for all first-degree relatives of patients with an FH diagnosis. 10 [id number] 11 SEE RESULT BELOW Name: BHUMIKA ROSS : [address]: Estefania Balderrama MD Acct: [id number] Unit: [id number] AGE: 65 Location: [facility] Re03/29/16 SEX: F Status: DEP ER SPEC: [id number] DAVID: 03/29/[address]: Estefania Balderrama MD REQ: [id number] RECD: 03/29/16 STATUS: MARCO BARILLAS DR: Thelma Bruce MD _ SOURCE: URINE SPDESC: ORDERED: Urine Culture COMMENTS: [id number] Procedure Result Reported Site Urine Culture Final 03/30/16- 1311 ML No Growth (<1,000 CFU/mL) * ML - MAIN LAB (PSC1) . END OF REPORT * ML=Testing performed at Main Lab DEPARTMENT OF PATHOLOGY, [address] [place] [address] Milton Hopper M.D. Director [facility] # [id number] 12 FASTING 13 GLUCOSE REFERENCE RANGE BASED ON FASTING SPECIMEN. 14 The upper reference limit for Creatinine is approximately 13% higher for people identified as -[place] Korean. 15 LDL-C levels > cn=186 mg/dL may include familial hypercholesterolemia (FH). Clinical [...] more information on this test, go to http://education.[employer]-Ideas/faq/25-OHVitaminD Effective December 19, the test order code 62650, used prior to December 19, for LC/MS/MS, will be transitioned to a carefully-selected immunoassay methodology. The new immunoassay has passed CDC standardization certifica- tion and provides high quality quantitative results that are tied back to standards from the National [place] of Standards and Technology. For those patients for whom LC/MS/MS testing is appropriate, please utilize test code 46911. When LC/MS/MS is the chosen assay, utilize test code 36069 for patients >or=3 years of age, patients who are on D2 supplementation, and patients for whom a separate D2 and D3 measurement is required. For patients <3 years of age, test code 90056 should be used. Important Note Regarding Custom Panels With 25-Hydroxyvitamin D: If you currently order vitamin D testing as part of a custom panel, the LC/MS/MS vitamin D test will be maintained in your panel after December 19, 2014. If you would like to replace the test in your panel with the new immunoassay, or have any questions regarding the transition of the 10404 test code, please contact your local [employer] inside sales account manager. 19 LDL-CHOLESTEROL RISK CATEGORY* GOAL VERY [...] approximately 13% higher for people identified as -South Korean. 22 LDL-CHOLESTEROL RISK CATEGORY* GOAL VERY HIGH [...] more information on this test, go to http://education.MyLife.Quotations Book/faq/25-OHVitaminD 26 SCANT NORMAL URETHRAL OR PERINEAL DAVE [...] RANGE BASED ON FASTING SPECIMEN. 34 Specimen: [id number] - TESTS: BUN, CRE FAXED PER REQUEST - @ 7497 03/25/08,(LAB.SLB) FAX TO DR BRUCE [phone] TEST: BUN TEST: CRE 35 FASTING 36 [...] (MANY)^CCU Procedures Date Code Description Status 12/08/2014 50694 EKG-Tracing & Report Completed 12/01/2014 33037 Spirometry Graphic Record/Max Voluntary Vent Completed 12/01/2014 01867 Non-Invcorrotid/Comp /Bilat Study Completed 11/24/2014 56967 Echocardiography Completed 12/07/2013 [id number] Mammogram Completed 10/23/2009 10792 EKG-Tracing & Report Completed 10/17/2009 71246 Non-Invcorrotid/Comp /Bilat Study Completed 10/17/2009 05511 Echocardiography Completed 11/28/2008 26456 Bone Density,Vertebral Fracture Completed 11/28/2008 03540 Bone Density Completed 11/28/2008 816101902 Bone Mineral Density Test Completed 11/22/2008 10487 EKG-Tracing & Report Completed Encounters Type Date [...] Office Thelma Bruce, 414.01 Coronary M.D. Atherosclerosis Algaaciq 272.40 Hyperlipidemia 627.2 Menopausal Or Female Climacteric State, Symptomatic Plan of Treatment 06/23/2018 - Thelma Bruce M.D.J45.30 Mild persistent asthma, uncomplicatedComments:inhaler refilled vdwatV57.5 Hyperlipidemia, unspecifiedNew Medication:Red Yeast Rice 600 mg - every dayComments:does not want to take statin discussed red yeast rice may also consider fish oil recheck cholesterolin Feb discussed regular exerciseFollow up:Followup:. (Follow up) Followup:. (Follow up)6 months with lipid ygcpqfxY81.31 Encounter for screening mammogram for malignant neoplasm ofNew Xrays:Bilateral Screening Mamogram, Ordered: 06/23/18G47.00 Insomnia, unspecifiedNew Medication:Melatonin 5 mg - 1 tab by mouth every night at bedtimeComments:has been taking 1 mg of melatonin intermittently will increase to 5 mg
[2018-10-02 10:34] VITALS: BP 164/82
--- NOTE | 2018-10-02 11:09 | UC ---
Respiratory Complaint HPI - HPI Summary HPI Summary: cough x 3 days cough is dry , nasal congestion , pnd no fever, no chills, pleuritic pain - History of Current Complaint Chief Complaint: UCRespiratory Stated Complaint: COUGH,CHEST CONGESTION/BACK ACHE Time Seen by Provider: 10/02/18 10:42 Hx Obtained From: Patient Hx Last Menstrual Period: n/a Onset/Duration: Gradual Onset, Lasting Days - 3, Still Present Timing: Constant Severity Initially: Moderate Severity Currently: Moderate Pain Intensity: 4 Character: Cough: Nonproductive Aggravating Factors: Exertion, Deep Breaths Alleviating Factors: Nothing Associated Signs And Symptoms: Positive: Dyspnea, Chills, Pleuritic Chest Pain, Wheezing, URI, Nasal Congestion. Negative: Fever - Allergies/Home Medications Allergies/Adverse Reactions: Allergies Allergy/AdvReac Type Severity Reaction Status Date / Time midazolam Allergy Sister had Verified 10/02/18 10:28 life threatening reaction propofol Allergy Sister had Verified 10/02/18 10:28 life threatening reaction codeine AdvReac Nausea And Verified 10/02/18 10:28 Vomiting ofloxacin AdvReac Altered Verified 10/02/18 10:28 Taste Narcotics AdvReac Nausea Uncoded 10/02/18 10:28 Home Medications: Home Medications Albuterol HFA INHALER* [Ventolin HFA Inhaler*] 1 - 2 puff INH Q4H PRN 10/02/18 [ History Confirmed 10/02/18] Naproxen Sodium [Aleve] 440 mg PO BID PRN 10/02/18 [History Confirmed 10/02/18] PMH/Surg Hx/FS Hx/Imm Hx - Additional Past Medical History Additional PMH: Right Lower Lobectomy (Benign Nodule), 2007, [place]; Hysterectomy, ~1998, [place]; Tonsillectomy, ~ [place] - Surgical History Surgical History: Yes Surgery Procedure, Year, and Place: Right Lower Lobectomy (Benign Nodule), 2007 , [place]; Hysterectomy, ~1998, ; Tonsillectomy, ~1968, - Family History Known Family History: Positive: Respiratory Disease - ASTHMA, Other - cancer, father - Social History Alcohol Use: Rare Substance Use Type: None Smoking Status (MU): Never Smoked Tobacco Review of Systems All Other Systems Reviewed And Are Negative: Yes Constitutional: Positive: Chills, Fatigue Skin: Positive: Negative Eyes: Positive: Negative ENT: Positive: Sore Throat, Nasal Discharge Respiratory: Positive: Cough Cardiovascular: Positive: Chest Pain Gastrointestinal: Positive: Negative Is Patient Immunocompromised?: No Physical Exam Triage Information Reviewed: Yes Appearance: Well-Appearing, No Pain Distress, Well-Nourished Vital Signs: Initial Vital Signs Temp 98.3 F 10/02/18 10:23 Pulse 77 10/02/18 10:23 Resp 18 10/02/18 10:23 BP 164/82 10/02/18 10:23 Pulse Ox 97 10/02/18 10:23 Vital Signs Reviewed: Yes Eye Exam: Normal Eyes: Positive: Conjunctiva Clear ENT: Positive: Normal ENT inspection, Hearing grossly normal, Pharynx normal, Nasal congestion Neck: Positive: Supple, Nontender, No Lymphadenopathy Respiratory: Positive: Wheezing Cardiovascular: Positive: RRR, No Murmur, Pulses Normal Skin Exam: Normal UC Diagnostic Evaluation - Laboratory O2 Sat by Pulse Oximetry: 97 Diagnostic Studies Comment: chest xray : IMPRESSION: No active cardiopulmonary disease is noted. Respiratory Course/Dx - Differential Dx/Diagnosis Provider Diagnosis: Bronchitis Discharge - Sign-Out/Discharge Documenting (check all that apply): Patient Departure All imaging exams completed and their final reports reviewed: Yes - Discharge Plan Condition: Stable Disposition: HOME Prescriptions: Albuterol HFA INHALER* [Ventolin HFA Inhaler*] 2 puff INH Q6H PRN #1 mdi PRN Reason: Wheezing predniSONE TAB* [Deltasone 20 MG TAB*] 40 mg PO DAILY #10 tab Patient Education Materials: Acute Bronchitis (ED) Referrals: Thelma Bruce MD [Primary Care Provider] - 7 Days - Billing Disposition and Condition Condition: STABLE Disposition: Home
== END 2018-10-02 11:17 | disposition home or self-care (01) ==
LOC: UCCORT 10:03
DX: J40 Bronchitis, not specified as acute or chronic (principal); M54.9 Dorsalgia, unspecified; Z90.2 Acquired absence of lung [part of]; Z88.5 Allergy status to narcotic agent; Z88.1 Allergy status to other antibiotic agents; Z88.4 Allergy status to anesthetic agent
CPT/HCPCS: 71046; 99212; G0463

== ENCOUNTER 2018-12-19 15:05 | Emergency (ER) | payer MEDICARE ==
--- NOTE | 2018-12-19 15:15 | UC ---
Skin Complaint HPI - HPI Summary HPI Summary: 68-year-old female presents for tick bite to her right back. States discovered tick earlier today. Her friend attempted to remove but was unable. States tick is still present. Denies fever, chills, flulike symptoms, myalgias, or joint pain or swelling. - History of Current Complaint Time Seen by Provider: 12/19/18 15:07 Stated Complaint: TICK REMOVAL Hx Obtained From: Patient Hx Last Menstrual Period: n/a - Allergy/Home Medications Allergies/Adverse Reactions: Allergies Allergy/AdvReac Type Severity Reaction Status Date / Time midazolam Allergy Sister had Verified 12/19/18 15:24 life threatening reaction propofol Allergy Sister had Verified 12/19/18 15:24 life threatening reaction codeine AdvReac Nausea And Verified 12/19/18 15:24 Vomiting ofloxacin AdvReac Altered Verified 12/19/18 15:24 Taste Narcotics AdvReac Nausea Uncoded 12/19/18 15:24 Home Medications: Home Medications Montelukast Sodium TAB* [Singulair TAB*] 10 mg PO DAILY 12/19/18 [History Confirmed 12/19/18] PMH/Surg Hx/FS Hx/Imm Hx Respiratory History: COPD - Surgical History Surgical History: Yes Surgery Procedure, Year, and Place: Right Lower Lobectomy (Benign Nodule), 2007 , [place]; Hysterectomy, ~1998, [place]; Tonsillectomy, ~1968, [place] - Family History Known Family History: Positive: Respiratory Disease - ASTHMA, Other - cancer, father - Social History Occupation: Retired Lives: Alone Alcohol Use: Rare Substance Use Type: None Smoking Status (MU): Never Smoked Tobacco Review of Systems All Other Systems Reviewed And Are Negative: Yes Constitutional: Negative: Fever, Chills Skin: Positive: Other - See HPI Respiratory: Positive: Negative Cardiovascular: Positive: Negative Gastrointestinal: Positive: Negative Genitourinary: Positive: Negative Musculoskeletal: Positive: Negative Neurological: Positive: Negative Is Patient Immunocompromised?: No Physical Exam Triage Information Reviewed: Yes Appearance: Well-Appearing, No Pain Distress, Well-Nourished Vital Signs Reviewed: Yes Respiratory: Positive: Lungs clear, Normal breath sounds, No respiratory distress Cardiovascular: Positive: RRR, No Murmur Abdomen Description: Positive: Nontender, No Organomegaly, Soft. Negative: Distended, Guarding Bowel Sounds: Positive: Present Musculoskeletal: Positive: Strength Intact, ROM Intact Neurological: Positive: Alert Skin: Positive: Other - Embedded, non-engorged adult deer to right mid back with local erythema at the site of the bite. Course/Dx - Course Course Of Treatment: 68-year-old female presents for tick bite to her right back. States discovered tick earlier today. Her friend attempted to remove but was unable. States tick is still present. Denies fever, chills, flulike symptoms, myalgias, or joint pain or swelling. Afebrile. Vital signs stable. Exam was remarkable for an embedded, not engorged adult deer tick to the right mid back with localized erythema at the site of the bite. The tick was removed by myself in its entirety using a tick twister. Discussed with patient that since the tick was not engorged that the risk for Lyme disease was low and recommended watchful waiting at this time. She is to follow-up with her primary care provider as needed. Reviewed signs and symptoms of Lyme disease, anticipatory guidance, and warning symptoms with the patient. Verbalizes understanding and agrees with plan of care. - Differential Diagnoses - Skin Complaint Differential Diagnoses: Local Allergic Reaction, Tick Born Illness - Diagnoses Provider Diagnosis: Tick bite of back Discharge - Sign-Out/Discharge Documenting (check all that apply): Patient Departure All imaging exams completed and their final reports reviewed: No Studies - Discharge Plan Condition: Stable Disposition: HOME Patient Education Materials: Tick Bite (ED) Referrals: Thelma Bruce MD [Primary Care Provider] - Additional Instructions: Ticks transmit infection only after they have attached and then taken a blood meal from their new host. A tick that has not attached cannot not pass any infection. Since the deer tick that transmits Lyme disease typically feeds for more than 36 hours before transmitting the organisim that causes Lyme disease, the risk of acquiring Lyme disease from an tick bite is only 1.2 to 1.4 percent , even in an area where the disease is common. There is no benefit of blood testing for Lyme disease at the time of the tick bite because even people who become infected will not have a positive blood test until approximately two to six weeks after the tick bite. To try to avoid getting bitten by a tick, you can: * Wear shoes, long-sleeved shirts, and long pants when you go outside. Keep ticks away from your skin by tucking your pants into your socks. * Wear light colors so you can spot any ticks that get on your clothes. * Wear bug spray or cream that contains DEET. (Do not use DEET on babies younger than 2 months.) On your clothes and gear, you can use bug repellents that have a chemical called "permethrin." * Shower within 2 hours of being outdoors if you think you have been in an area where there are ticks. * Put dry clothes briefly (for about 4 minutes) in a dryer after being outdoors. * Check your clothes and body for ticks after being outdoors. Be sure to check your scalp, waist, armpits, groin, and backs of your knees. Check your children , too. After a tick bite, you will need to monitor for signs of Lyme disease over the nexter several weeks even if you have been given antibiotics to prevent the infection. Seek immediate medical attention if you develop a bullseye rash, fever, flu-like symptoms including headache, stiff neck, fatigue, muscle aches, joint pain or swelling. - Billing Disposition and Condition Condition: STABLE Disposition: Home
[2018-12-19 15:23] VITALS: BP 131/69
== END 2018-12-19 15:26 | disposition home or self-care (01) ==
LOC: UCCORT 15:05
DX: S20.461A Insect bite (nonvenomous) of right back wall of thorax, initial encounter (principal); W57.XXXA Bitten or stung by nonvenomous insect and other nonvenomous arthropods, initial encounter; J44.9 Chronic obstructive pulmonary disease, unspecified; Z88.1 Allergy status to other antibiotic agents; Z88.5 Allergy status to narcotic agent; Z88.8 Allergy status to other drugs, medicaments and biological substances
CPT/HCPCS: 99211; G0463

== ENCOUNTER 2019-08-24 21:52 | Emergency (ER) | payer MEDICARE ==
--- NOTE | 2019-08-24 21:58 | UC ---
General HPI - HPI Summary HPI Summary: 69 yo female c/o progressive worse cough over the last 2 months, but worse last few days. Has been been taking otc cold medication and nose spray (bid) and albuterol inhaler. ? fever / chills. + progressive sob. No cp perse. + fatigue. Cough minimally productive. - History of Current Complaint Stated Complaint: COUGH Time Seen by Provider: 08/24/19 21:57 Hx Obtained From: Patient Hx Last Menstrual Period: n/a - Allergy/Home Medications Allergies/Adverse Reactions: Allergies Allergy/AdvReac Type Severity Reaction Status Date / Time midazolam Allergy Sister had Verified 08/24/19 21:56 life threatening reaction propofol Allergy Sister had Verified 08/24/19 21:56 life threatening reaction codeine AdvReac Nausea And Verified 08/24/19 21:56 Vomiting ofloxacin AdvReac Altered Verified 08/24/19 21:56 Taste enviromental Allergy Unknown Unknown Uncoded 08/24/19 21:57 Reaction Details Narcotics AdvReac Nausea Uncoded 08/24/19 21:56 Home Medications: Home Medications Nasal [place],? Name 08/24/19 [History] guaiFENesin [Mucinex] 600 mg PO PRN 08/24/19 [History] PMH/Surg Hx/FS Hx/Imm Hx Previously Healthy: No - see pmh - Surgical History Surgical History: Yes Surgery Procedure, Year, and Place: Right Lower Lobectomy (Benign Nodule), 2007 , ; Hysterectomy, ~; Tonsillectomy, ~1968, [place] - Family History Known Family History: Positive: Respiratory Disease - ASTHMA, Other - cancer, father - Social History Alcohol Use: Rare Substance Use Type: None Smoking Status (MU): Never Smoked Tobacco Review of Systems All Other Systems Reviewed And Are Negative: Yes Constitutional: Positive: Fatigue Skin: Positive: Negative Eyes: Positive: Negative ENT: Positive: Sinus Congestion Respiratory: Positive: Cough Cardiovascular: Positive: Palpitations Gastrointestinal: Positive: Negative Genitourinary: Positive: Negative Motor: Positive: Negative Neurovascular: Positive: Negative Musculoskeletal: Positive: Negative Neurological: Positive: Negative Psychological: Positive: Negative Is Patient Immunocompromised?: No Physical Exam Triage Information Reviewed: Yes Appearance: Well-Nourished, Other: - looks tired but nad Vital Signs Reviewed: Yes Eye Exam: Normal ENT: Positive: Pharyngeal erythema - mild post pharyng redness, no sores / exudates, Nasal congestion, Other - mm a little dry Neck exam: Normal Respiratory Exam: Other - Dec BS R base (note hx RLLectomy) + diffuse insp<exp wheeze. + dry cough. Converses in full sentances but interspersed with cough. Cardiovascular Exam: Other - HR 120's - 130's Cardiovascular: Positive: Brisk Capillary Refill Abdominal Exam: Normal Abdomen Description: Positive: Nontender Musculoskeletal: Positive: Edema @ - mild BLE edema mosly nonpitting. + stigmata venous insuff. Distal ext warm to touch. Neurological Exam: Normal - grossly nonfocal Psychological Exam: Normal - nad Skin Exam: Normal - nondiaphoretic no visible or reported rash Course/Dx - Course Course Of Treatment: EKG: ST at 123 bpm no old for comp TN 158 Qtc 85 Encourage further evaluation / tx in ED. D/w pt and her spouse. She agrees to go. Politely but firmly decline EMS, spouse will drive. I spoke with Dr. Alayna Torres via telephone (ED MD). - Diagnoses Provider Diagnosis: Dyspnea, Tachycardia Discharge ED - Sign-Out/Discharge Documenting (check all that apply): Patient Departure All imaging exams completed and their final reports reviewed: No Studies - Discharge Plan Condition: Guarded Disposition: HOME-RECOMMEND TO ED Patient Education Materials: Dyspnea (ED), Tachycardia (ED) Referrals: Thelma Bruce MD [Primary Care Provider] - Additional Instructions: Please go directly to the Emergency Department. Stop and call 911 if any problems on the way. - Billing Disposition and Condition Condition: GUARDED Disposition: Home-Recommend to ED
[2019-08-24 22:11] VITALS: BP 143/59
== END 2019-08-24 22:24 | disposition home health service (06) ==
LOC: UCCORT 21:52
DX: R06.00 Dyspnea, unspecified (principal); R00.0 Tachycardia, unspecified; R05 Cough; R53.83 Other fatigue; R00.2 Palpitations; Z88.1 Allergy status to other antibiotic agents; Z88.5 Allergy status to narcotic agent; Z91.09 Other allergy status, other than to drugs and biological substances; Z88.8 Allergy status to other drugs, medicaments and biological substances
CPT/HCPCS: 93005; 99212; G0463